=== PATIENT | female | born 1940 | race African-American/Black ===

== ENCOUNTER 2018-02-18 05:52 | Inpatient (IN) | payer OTHER ==
[2018-02-06 14:06] VITALS: BMI 33.6
[2018-02-18] MEDS ORDERED: ROPIVICAINE 0.2%/MORPH PF/KETOROLAC - 51ML DISP.SYRINGE IA ONE ×4 (06:22→12:02)
[2018-02-18] MEDS ORDERED: oxyCODONE HCL 10 MG SUSTAINED ACTING TABLET PO ONE (06:22)
[2018-02-18] MEDS ORDERED: CELECOXIB 200 MG CAPSULE PO ONE (06:22)
[2018-02-18] MEDS ORDERED: GABAPENTIN 300 MG CAPSULE (FP) PO ONE (06:22)
[2018-02-18] MEDS ORDERED: CEFAZOLIN 2 GM/D5W 2 GM/50 ML ML IVPB ONE (06:22)
[2018-02-18] MEDS ORDERED: TRANEXAMIC ACID 1000 MG/10 ML VIAL IVPUSH ONE (06:22)
[2018-02-18] MEDS ORDERED: PANTOPRAZOLE 40 MG TABLET (FP) PO ONE (06:23)
[2018-02-18] MEDS ORDERED: PANTOPRAZOLE 40 MG TABLET (FP) ONE (06:50)
[2018-02-18] MEDS ORDERED: GABAPENTIN 300 MG CAPSULE (FP) ONE (06:51)
[2018-02-18] MEDS ORDERED: CELECOXIB 200 MG CAPSULE ONE (06:51)
[2018-02-18] MEDS ORDERED: oxyCODONE HCL 10 MG SUSTAINED ACTING TABLET ONE (06:51)
--- NOTE | 2018-02-18 07:30 | HP ---
Admitting History and Physical - Admission Chief Complaint: right knee osteoarthritis x years History of Present Illness: 77 year old female presents regarding her right knee. Longstanding history of right knee osteoarthritis. Patient complains of pain, limited ROM, difficulty ambulating and difficulty with activities of daily living. Patient has failed conservative treatment measures including PO medication, activity modification, injections and exercise program. As patient has failed conservative treatment measures, she wishes to proceed with surgical intervention - right total knee arthroplasty, MAKOplasty. History Source: Patient - Past Medical History Cardiovascular: Yes: Hyperlipdemia Pulmonary: Yes: Asthma ...: No Psych: Yes: Depression - Past Surgical History Additional Past Surgical History: See written history & physical. - Advance Directives Advance Directives: Yes: Health Care Proxy - Smoking History Smoking history: Former smoker Have you smoked in the past 12 months: Yes Aproximately how many cigarettes per day: 40 If you are a former smoker, when did you quit?: 1984 - Alcohol/Substance Use Hx Alcohol Use: Yes (WINE SOCIAL) Home Medications - Allergies Allergies/Adverse Reactions: Allergies Allergy/AdvReac Type Severity Reaction Status Date / Time No Known Allergies Allergy Verified 02/18/18 06:41 - Home Medications Home Medications: Ambulatory Orders Albuterol Sulfate [Proair Hfa] 1 puff IH PRN PRN 02/06/18 Aspirin [Aspirin EC] 81 mg PO DAILY 02/06/18 Budesonide/Formeterol Fumarate [SYMBICORT 160/4.5mcg -] 2 inh PO PRN PRN Fluoxetine HCl [Prozac] 10 mg PO DAILY 02/06/18 Simvastatin 10 mg PO HS 02/06/18 Wellbutrin Xl 300 mg PO DAILY 02/06/18 Review of Systems - Review of Systems Musculoskeletal: reports: Crepitus (right knee), Decreased ROM (right knee), Joint Pain (right knee), Joint Swelling (right knee) Physical Examination Vital Signs: Vital Signs Temperature 98.5 F 02/18/18 06:43 Pulse Rate 70 02/18/18 06:43 Respiratory Rate 16 02/18/18 06:43 Blood Pressure 137/74 02/18/18 06:43 O2 Sat by Pulse Oximetry (%) 97 02/18/18 06:47 Constitutional: Yes: Well Nourished, No Distress Eyes: Yes: Conjunctiva Clear HENT: Yes: Atraumatic, Normocephalic Neck: Yes: Supple Cardiovascular: Yes: Regular Rate and Rhythm Respiratory: Yes: Regular Gastrointestinal: Yes: Soft ...Rectal Exam: Yes: Deferred Musculoskeletal: Yes: Joint Stiffness (right knee), Joint Swelling (right knee) Assessment/Plan 77 year old female presents regarding her right knee. Longstanding history of right knee osteoarthritis. Patient complains of pain, limited ROM, difficulty ambulating and difficulty with activities of daily living. Patient has failed conservative treatment measures including PO medication, activity modification, injections and exercise program. As patient has failed conservative treatment measures, she wishes to proceed with surgical intervention. Pros, cons, risks, benefits & alternatives of a right total knee arthroplasty, MAKOplasty was discussed with the patient at length. Patient confirms her understanding and consents to proceed with a right total knee arthroplasty - MAKOplasty.
[2018-02-18] MEDS ORDERED: SUCCINYLCHOLINE CHLORIDE 200 MG/10 ML VIAL ONE (08:02)
[2018-02-18] MEDS ORDERED: ePHEDrine SULFATE 50 MG/1 ML AMPULE ONE (08:02)
[2018-02-18] MEDS ORDERED: PROPOFOL 20 ML ONE ×5 (08:02→11:40)
[2018-02-18] MEDS ORDERED: VANCOMYCIN 1,000 MG VIAL (RESTRICTED TO ID ONLY) IVPB ONE ×3 (08:57→12:02)
[2018-02-18] MEDS ORDERED: TRANEXAMIC ACID 1000 MG/10 ML VIAL IVPB ONE ×3 (08:59→12:02)
[2018-02-18] MEDS: KETOROLAC TROMETHAMINE 30 MG/1 ML VIAL IVPUSH SCH ×2 (12:00→18:21)
[2018-02-18] MEDS: ACETAMINOPHEN 325 MG TABLET (FP) PO SCH ×3 (12:00→23:55)
[2018-02-18] MEDS: traMADol HCL 50 MG TABLET PO SCH ×3 (12:00→23:55)
--- NOTE | 2018-02-18 12:22 | OP ---
Operative Note - Note: Operative Date: 02/18/18 Pre-Operative Diagnosis: Right knee OA Operation: Right TKA Post-Operative Diagnosis: Same as Pre-op Surgeon: Iain Paez Nitroglycerin Separator Operator: Alley Lomas Anesthesia: Spinal Specimens Removed: bone Estimated Blood Loss (mls): 150
[2018-02-18] MEDS ORDERED: ACETAMINOPHEN INJECTION 100 ML IVPB ONE (12:23)
[2018-02-18] MEDS ORDERED: traMADol HCL 50 MG TABLET ONE (12:23)
[2018-02-18] MEDS ORDERED: KETOROLAC TROMETHAMINE 30 MG/1 ML VIAL ONE (12:23)
[2018-02-18] MEDS ORDERED: oxyCODONE HCL 5 MG TABLET PO PRN ×2 (12:25)
[2018-02-18] MEDS ORDERED: ONDANSETRON 4 MG/2 ML VIAL IVPUSH PRN ×2 (12:25→12:39)
[2018-02-18] MEDS ORDERED: PROMETHAZINE HCL 25 MG/1 ML VIAL IVPB PRN (12:25)
[2018-02-18] MEDS ORDERED: ALBUTEROL SO4 18 GM HFA INHALER IH PRN (12:37)
[2018-02-18] MEDS ORDERED: BUDESONIDE/FORMETEROL FUMARATE 160/4.5 mcg INHALER IH PRN (12:37)
[2018-02-18] MEDS ORDERED: MAGNESIUM HYDROX 2400MG/30ML ORAL SUSPENSION 30 ML CUP PO PRN (12:39)
[2018-02-18] MEDS ORDERED: MAG HYDROX/AL HYDROX/SIMETH 30 ML UNIT-DOSE CUP PO PRN (12:39)
[2018-02-18] MEDS ORDERED: LACTATED RINGERS SOLUTION 1,000 ML IV SCH (12:45)
[2018-02-18] MEDS ORDERED: ACETAMINOPHEN 1000 MG/100 ML VIAL (NON FORMULARY) IVPB ONE (12:45)
[2018-02-18] MEDS: CEFAZOLIN 2 GM/D5W 2 GM/50 ML ML IVPB SCH (17:31)
[2018-02-18] MEDS ORDERED: DEXAMETHASONE SOD PHOSPHATE 10 MG/1 ML VIAL IVPB ONE (20:00)
[2018-02-18] MEDS: SENNOSIDES/DOCUSATE COMBO (SENNA PLUS) TABLET (UD) PO SCH (21:18)
[2018-02-18] MEDS: ASPIRIN 325 MG TABLET PO SCH (21:18)
[2018-02-18] MEDS: ASCORBIC ACID 500 MG TABLET (FP) PO SCH (21:19)
[2018-02-18] MEDS: oxyCODONE HCL 10 MG SUSTAINED ACTING TABLET PO SCH (21:19)
[2018-02-18] MEDS: ATORVASTATIN CA 10 MG TABLET (FP) PO SCH (21:20)
[2018-02-18] MEDS: CELECOXIB 200 MG CAPSULE PO SCH (21:20)
[2018-02-18] MEDS: GABAPENTIN 300 MG CAPSULE (FP) PO SCH (21:20)
[2018-02-19] MEDS: KETOROLAC TROMETHAMINE 30 MG/1 ML VIAL IVPUSH SCH ×2 (00:56→06:15)
[2018-02-19] MEDS: CEFAZOLIN 2 GM/D5W 2 GM/50 ML ML IVPB SCH (02:06)
[2018-02-19] MEDS: traMADol HCL 50 MG TABLET PO SCH ×3 (06:14→19:59)
[2018-02-19] MEDS: ACETAMINOPHEN 325 MG TABLET (FP) PO SCH ×3 (06:15→17:45)
[2018-02-19 08:11] LABS: HEMATOCRIT 32.5 % (32.4-45.2); HEMOGLOBIN 10.6 GM/dl (10.7-15.3); MCH 29.2 pg (25.7-33.7); MCHC 32.6 g/dl (32.0-36.0); MEAN CELL VOLUME 89.5 fl (80-96); MEAN PLT VOLUME 7.4 fl (7.5-11.1); PLATELET COUNT 273 K/MM3 (134-434); RBC 3.63 M/mm3 (3.60-5.2); RDW 13.3 % (11.6-15.6); WHITE BLOOD COUNT 11.1 K/mm3 (4.0-10.8)
[2018-02-19 08:40] LABS: ANION GAP 8 (8-16); BLOOD UREA NITROGEN 18 mg/dl (7-18); CHLORIDE 103 mmol/L (98-107); CO2 23 mmol/L (22-28); CREATININE 1.1 mg/dl (0.6-1.3); GLUCOSE,RANDOM 121 mg/dl (74-106); POTASSIUM 4.2 mmol/L (3.5-5.1); SODIUM 134 mmol/L (136-145)
[2018-02-19] MEDS: CELECOXIB 200 MG CAPSULE PO SCH ×2 (10:34→21:13)
[2018-02-19] MEDS: ASPIRIN 325 MG TABLET PO SCH ×2 (10:34→21:13)
[2018-02-19] MEDS: PANTOPRAZOLE 40 MG TABLET (FP) PO SCH (10:35)
[2018-02-19] MEDS: GABAPENTIN 300 MG CAPSULE (FP) PO SCH ×2 (10:35→21:12)
[2018-02-19] MEDS: SENNOSIDES/DOCUSATE COMBO (SENNA PLUS) TABLET (UD) PO SCH ×2 (10:35→21:13)
[2018-02-19] MEDS: oxyCODONE HCL 10 MG SUSTAINED ACTING TABLET PO SCH ×2 (10:35→21:13)
[2018-02-19] MEDS: MULTIVITAMINS (DAILY MVI) TABLET (FP) PO SCH (10:36)
[2018-02-19] MEDS: ASCORBIC ACID 500 MG TABLET (FP) PO SCH ×2 (10:37→21:12)
[2018-02-19] MEDS ORDERED: PT OWN MED DRAWER 7, Y5N ONE (10:39)
[2018-02-19] MEDS: FLUoxetine HCL 10 MG CAPSULE (FP) PO SCH (10:40)
[2018-02-19] MEDS: ATORVASTATIN CA 10 MG TABLET (FP) PO SCH (21:13)
--- NOTE | 2018-02-19 23:00 | PN ---
Progress Note (short form) - Note Progress Note: Pt seen and examined. Doing well AVSS Selected Entries 02/19/18 21:36 Temperature 98.2 F Pulse Rate 72 Respiratory 18 Rate Blood Pressure 107/46 Laboratory Tests 02/19/18 02/19/18 07:35 07:35 WBC 11.1 H Hgb 10.6 L Hct 32.5 Plt Count 273 Sodium 134 L Potassium 4.2 Chloride 103 Carbon Dioxide 23 Anion Gap 8 BUN 18 Creatinine 1.1 Random Glucose 121 H Calcium 9.0 Gen: NAD RLE: c/d/i, NVID A/P s/p R TKA PT/OOB D/C in AM after PT
[2018-02-20] MEDS: ACETAMINOPHEN 325 MG TABLET (FP) PO SCH ×2 (00:04→06:32)
[2018-02-20] MEDS: traMADol HCL 50 MG TABLET PO SCH ×2 (00:05→06:33)
[2018-02-20 06:28] VITALS: BP 100/45; PULSE 67; TEMP 97.8
[2018-02-20 08:22] LABS: HEMATOCRIT 30.2 % (32.4-45.2); HEMOGLOBIN 9.8 GM/dl (10.7-15.3); MCH 29.1 pg (25.7-33.7); MCHC 32.5 g/dl (32.0-36.0); MEAN CELL VOLUME 89.8 fl (80-96); MEAN PLT VOLUME 7.7 fl (7.5-11.1); PLATELET COUNT 218 K/MM3 (134-434); RBC 3.37 M/mm3 (3.60-5.2); RDW 13.5 % (11.6-15.6); WHITE BLOOD COUNT 8.9 K/mm3 (4.0-10.8)
[2018-02-20] MEDS: ASCORBIC ACID 500 MG TABLET (FP) PO SCH (09:23)
[2018-02-20] MEDS: MULTIVITAMINS (DAILY MVI) TABLET (FP) PO SCH (09:23)
[2018-02-20] MEDS: ASPIRIN 325 MG TABLET PO SCH (09:23)
[2018-02-20] MEDS: CELECOXIB 200 MG CAPSULE PO SCH (09:24)
[2018-02-20] MEDS: PANTOPRAZOLE 40 MG TABLET (FP) PO SCH (09:24)
[2018-02-20] MEDS: GABAPENTIN 300 MG CAPSULE (FP) PO SCH (09:24)
[2018-02-20] MEDS: oxyCODONE HCL 10 MG SUSTAINED ACTING TABLET PO SCH (09:24)
[2018-02-20] MEDS: SENNOSIDES/DOCUSATE COMBO (SENNA PLUS) TABLET (UD) PO SCH (09:24)
[2018-02-20] MEDS ORDERED: PT OWN MED DRAWER 7, Y5N ONE (09:28)
[2018-02-20] MEDS: FLUoxetine HCL 10 MG CAPSULE (FP) PO SCH (09:29)
--- NOTE | 2018-02-20 16:50 | PATH ---
Surgical Pathology Report Patient Name: NEIL COE Med. Rec. #: [id number] /Age/Gender: 1940 (Age: 77) / F Account: [id number] Location: [facility] Taken: 02/18/2018 Received: 02/18/2018 Reported: 02/20/2018 Physicians: Iain Paez M.D. Specimen(s) Received RIGHT KNEE BONE Clinical History Right knee osteoarthritis Final Diagnosis BONE, KNEE, RIGHT, TOTAL KNEE REPLACEMENT MAKOPLASTY: BONE WITH DEGENERATIVE JOINT DISEASE, FIBROADIPOSE AND DENSE FIBROCONNECTIVE TISSUE. Electronically Signed Dipti Bae M.D. Gross Description Received in formalin labeled "right knee bones" is a 11 x 10 x 3 cm aggregate of multiple portions of bone and soft tissue. The tibial plateau measures 8 x 7 x 2 cm. There are focal areas of eburnation identified. The articular surface is beverly-yellow and diffusely granular. The underlying trabecular bone is yellow and hard. [employer] Operator sections submitted in one cassette, following decalcification. SEVERINO/02/18/2018 sky/02/18/2018
--- NOTE | 2018-02-21 12:43 | SPEC ---
DATE OF OPERATION: 02/18/2018 PREOPERATIVE DIAGNOSIS: Right knee osteoarthritis. POSTOPERATIVE DIAGNOSIS: Right knee osteoarthritis. PROCEDURE: Right total knee replacement with MAKOplasty robotic navigation. ATTENDING: Sharon Prince MD MANAGER ENGAGEMENT: SANTIAGO Waite ANESTHESIA: Spinal plus sedation. ESTIMATED BLOOD LOSS: 150 mL. COMPLICATIONS: None. SPECIMENS: Resected bone was sent for pathology analysis. DISPOSITION: The patient was transferred to the PACU in stable condition. IMPLANTS USED: [place] Triathlon size 5 femoral component, Triathlon size 4 tibial component, 13-mm total stabilized polyethylene component, 32-mm patellar component. INDICATIONS: This is a 77-year-old female who presented to the office complaining of severe right knee pain. She was seen and examined by Dr. Prince and diagnosed with severe right knee osteoarthritis. The patient was initially treated conservatively but failed nonoperative management. She continued to have severe pain and ambulatory dysfunction. She was therefore indicated for a right total knee replacement with MAKOplasty robotic navigation. The risks, benefits and alternatives to the surgery were explained to the patient in great detail and she elected to proceed with the surgery. On the day of surgery, the patient was taken to the operating room and placed on the OR table. Spinal anesthesia was administered by the anesthesiologist. The patient was then positioned supine on the table and all bony prominences were padded. The knee was then prepped and draped in the usual sterile fashion and intravenous antibiotics were given for infection prophylaxis. A surgical timeout was then performed with the team, and the patients identity, procedure, side, availability of implants, and the administration of antibiotics was confirmed. With the knee flexed, a midline incision was made and carried down through the subcutaneous fat to the underlying retinaculum. A medial parapatellar arthrotomy was performed. This was followed by a subperiosteal dissection of the tissue off the proximal, medial tibia. A portion of fat pad was removed from under the patellar tendon, and a small portion of fat was excised off the distal supracondylar femur. Electrocautery and an Med ePadamantys bipolar sealing device were used to achieve hemostasis. The knee was then flexed further and the anterior horn of the lateral meniscus was released from the midline. Next, the anterior and posterior cruciate ligaments were transected. Grade 4 changes were noted diffusely throughout the knee. Femoral and tibial checkpoints were then placed in the appropriate location using a mallet. Two parallel bicortical self-drilling pins were placed in the tibial diaphysis after making stab incisions and bluntly dissecting down to bone. Two pins were then placed in the distal supracondylar femur. The [employer] navigation arrays were then attached to both the femoral and tibial pins and the lower extremity was then registered to the robotic navigation device using various joint movements, as well as inputting several dozen reference points. The knee was then taken through a full range of motion with a corrective force applied. Alignment in varus/valgus as well as flexion/extension and soft tissue balance was measured in various positions. The navigation device showed a numerical and graphic representation of the soft tissue balance. The components were repositioned virtually using the software until optimal soft tissue balance was achieved on screen. Once this was accomplished, the final plan was saved and sent to the robot. Self-retaining retractors were then placed at the joint line for exposure and protection of the collateral ligaments. The robot was brought into the sterile field and registered with the navigation device. The robotic arm with attached oscillating saw blade was then used to perform femoral and tibial bone cuts as per the saved software plan. The femoral box cut was made using the appropriately sized manual cutting guide. The knee was then irrigated. Trial components were placed and the knee was taken through a full range of motion to assess soft tissue balance and alignment. The range of motion was found to be excellent and the soft tissue balance was optimal and according to plan. The knee was then put into extension and the patella everted. The synovium around the patella was circumscribed with electrocautery. A caliper was used to measure the patellar thickness and a saw was then used to resect the patella at the chondro-osseous junction. The cut surface was then sized and drilled for the appropriate patellar button, with care taken to medialize it. A trial patella was then placed and the knee was again taken through a full range of motion. The knee was found to have both good balance and good patellar tracking. All of the components were removed except the tibial base plate. The appropriate instrumentation was used to drill and punch the proximal tibia for the keel of the final component. All bony surfaces were then cleaned with pulsatile lavage and dried. Bone cement was then prepared on the back table, and final components were cemented in place in the usual fashion. Extruded cement was removed. The polyethylene trial was placed, the knee was put into extension, and axial pressure was applied for compression while the cement hardened. The patellar button was similarly cemented into place. Once the cement had hardened, the knee was taken through a full range of motion to assess stability, balance, and patellar tracking. This was found to be optimal and the trial polyethylene was exchanged for the appropriately sized real implant. The wound was then thoroughly irrigated with normal saline. A 3-minute dilute Betadine lavage was performed. The knee was again irrigated using a pulsatile lavage device. A periarticular injection was used to locally infiltrate the capsular tissues surrounding the implant and prosthesis. Then No. 1 Polysorb and 0 V-Loc 180 barbed sutures were used to close the arthrotomy. Then No. 1 Polysorb and 2-0 V-Loc 90 sutures were used in the subcutaneous tissues. Then 4-0 undyed Vicryl and Dermabond skin adhesive was used to close the stab incisions made for the navigation pins. The skin was closed using both 3-0 V-Loc 90 suture in a running subcuticular fashion and Dermabond skin adhesive. Once this was completed a sterile Aquacel dressing and compressive Daniel wrap was applied. The patient was then awakened and taken to the PACU in stable condition. SHARON PRINCE M.D. [id number]
== END 2018-02-20 14:30 | disposition home health service (06) | DRG 470 ==
LOC: FM/S 05:52
PROVIDERS: ADMIT Student in an Organized Health Care Education/Training Program; ATTEND Student in an Organized Health Care Education/Training Program
PROC: 8E0Y0CZ Robotic Assisted Procedure of Lower Extremity, Open Approach (ICD-10-PCS; 2018-02-18)
PROC: 0SRC0J9 Replacement of Right Knee Joint with Synthetic Substitute, Cemented, Open Approach (ICD-10-PCS; principal; 2018-02-18 08:43)
DX: M17.11 Unilateral primary osteoarthritis, right knee (principal); E78.5 Hyperlipidemia, unspecified; J45.909 Unspecified asthma, uncomplicated; F32.9 Major depressive disorder, single episode, unspecified; Z87.891 Personal history of nicotine dependence
CPT/HCPCS: 36415; 73560-TC-RT-FY; 80048; 85027; 88304-TC; 88311-TC; 94010; 94760; 97116-GP; 97162-GP; J0131; J1100

== ENCOUNTER 2018-02-25 13:04 | Emergency (ER) | payer OTHER ==
--- NOTE | 2018-02-25 13:33 | PDOC ---
History of Present Illness - General Chief Complaint: Shortness of Breath Stated Complaint: DIFFICULTY BREATHING Time Seen by Provider: 02/25/18 13:32 - History of Present Illness Initial Comments: 02/25/18 13:33 Ms. Olivas is a 77 yo female w/ pmh of HLD and asthma who presents from providers office as she had an episode of asthma exacerbation while waiting to see her orthopedist earlier today. She reports she now feels better after she received 1 episode of nebulizer and is breathing clearly now. Ms. Olivas was at her orthopedists office for evaluation of right knee warmth and swelling as she is 1 week out from a total right knee replacement. She is concerned as she has had RLE warmth and swelling for the last 2-3 days and is concerned something may be wrong post-op. The patient denies chest pain, shortness of breath, headache and dizziness. Denies fever, chills, nausea, vomit, diarrhea and constipation. Denies dysuria, frequency, urgency and hematuria. Allergies: NKDA Past History - Past Medical History Allergies/Adverse Reactions: Allergies Allergy/AdvReac Type Severity Reaction Status Date / Time No Known Allergies Allergy Verified 02/25/18 13:21 Home Medications: Ambulatory Orders Albuterol Sulfate [Proair Hfa] 1 puff IH PRN PRN 02/06/18 Budesonide/Formeterol Fumarate [SYMBICORT 160/4.5mcg -] 2 inh PO PRN PRN Fluoxetine HCl [Prozac] 10 mg PO DAILY 02/06/18 Simvastatin 10 mg PO HS 02/06/18 Celecoxib [CeleBREX -] 200 mg PO DAILY #30 capsule 02/19/18 Multivitamins [Multivit ([facility] Formul[facility])] 1 tab PO DAILY tab 02/19/18 Oxycodone HCl/Acetaminophen [Percocet 5-325 mg Tablet] 1 - 2 tab PO Q4H PRN #60 tablet MDD 10 02/19/18 Pantoprazole Sodium [Protonix -] 40 mg PO DAILY #40 tablet.ec 02/19/18 traMADol HCL [Ultram -] 50 mg PO Q4H PRN #42 tablet MDD 6 02/19/18 Ascorbic Acid [Vitamin C -] 500 mg PO DAILY 02/25/18 Aspirin [ASA -] 325 mg PO DAILY 02/25/18 Sulfamethoxazole/Trimethoprim [Bactrim Ds -] 1 tab PO BID #14 tablet 02/25/18 Anemia: No Asthma: Yes (USES INHALERS PRN) Cancer: No Cardiac Disorders: No CVA: No COPD: No CHF: No Dementia: No Diabetes: No GI Disorders: Yes (GERD) Disorders: No HTN: No Hypercholesterolemia: Yes Liver Disease: No Seizures: No Thyroid Disease: No - Surgical History Abdominal Surgery: No Appendectomy: No Cardiac Surgery: No Cholecystectomy: No Lung Surgery: No Neurologic Surgery: No Orthopedic Surgery: Yes (ARTHROSCOPY RIGHT KNEE TIMES 2 2015) - Suicide/Smoking/Psychosocial Hx Smoking History: Former smoker Have you smoked in the past 12 months: Yes Number of Cigarettes Smoked Daily: 40 If you are a former smoker, when did you quit?: 1984 Hx Alcohol Use: Yes (WINE SOCIAL) Drug/Substance Use Hx: No Substance Use Type: Alcohol Hx Substance Use Treatment: No Review of Systems - Review of Systems Comments:: 02/25/18 13:33 GENERAL/CONSTITUTIONAL: No fever or chills. No weakness. HEAD, EYES, EARS, NOSE AND THROAT: No change in vision. No ear pain or discharge. No sore throat. CARDIOVASCULAR: No chest pain or shortness of breath RESPIRATORY: No cough, wheezing, or hemoptysis. GASTROINTESTINAL: No nausea, vomiting, diarrhea or constipation. GENITOURINARY: No dysuria, frequency, or change in urination. MUSCULOSKELETAL: +RLE swelling. No neck or back pain. SKIN: No rash NEUROLOGIC: No headache, vertigo, loss of consciousness, or change in strength/ sensation. ENDOCRINE: No increased thirst. No abnormal weight change HEMATOLOGIC/LYMPHATIC: No anemia, easy bleeding, or history of blood clots. ALLERGIC/IMMUNOLOGIC: No hives or skin allergy. *Physical Exam - Physical Exam Comments: 02/25/18 13:33 GENERAL: Awake, alert, and fully oriented, in no acute distress HEAD: No signs of trauma, normocephalic, atraumatic EYES: PERRLA, EOMI, sclera anicteric, conjunctiva clear ENT: Auricles normal inspection, hearing grossly normal, nares patent, oropharynx clear without exudates. Moist mucosa NECK: Normal ROM, supple, no lymphadenopathy, JVD, or masses LUNGS: No distress, speaks full sentences, clear to auscultation bilaterally HEART: Regular rate and rhythm, normal S1 and S2, no murmurs, rubs or gallops, peripheral pulses normal and equal bilaterally. ABDOMEN: Soft, nontender, normoactive bowel sounds. No guarding, no rebound. No masses EXTREMITIES: +RLE warm, swollen, and tight appearing. 3cm blood bullae noted at site. Mild redness noted around 3cm incision. Otherwise normal inspection, Normal range of motion, no edema. No clubbing or cyanosis. NEUROLOGICAL: Cranial nerves II through XII grossly intact. Normal speech, normal gait, no focal sensorimotor deficits SKIN: Warm, Dry, normal turgor, no rashes or lesions noted. ED Treatment Course - LABORATORY CBC & Chemistry Diagram: 02/25/18 14:13 02/25/18 17:00 Medical Decision Making - Medical Decision Making 02/25/18 17:04 Ms. Olivas is a 77 yo female w/ pmh as described who presents for evaluation after asthma exacerbation earlier today complicated by recent surgery with cellulitis noted at surgery site. Labs as below. Cellulitic process discussed with orthopedic surgeon who would like one week of bactrim BID (DS) and f/u tomorrow. Will discharge patient to home w/ said treatment. Patient verbalized she will follow-up with ortho tomorrow. Laboratory Results - last 24 hr 02/25/18 02/25/18 14:13 17:00 WBC 9.6 RBC 3.55 L Hgb 10.4 L Hct 31.6 L MCV 88.9 MCH 29.3 MCHC 32.9 RDW 14.2 Plt Count 331 MPV 7.7 Absolute Neuts (auto) 8.7 Neutrophils % 90.5 H Lymphocytes % 5.2 L Monocytes % 3.6 L Eosinophils % 0.4 Basophils % 0.3 Nucleated RBC % 0 Sodium 137 Potassium 4.3 Chloride 104 Carbon Dioxide 25 Anion Gap 8 BUN 20 H Creatinine 0.9 Creat Clearance w eGFR > 60 Random Glucose 128 H Calcium 8.6 Total Bilirubin 0.4 AST 29 ALT 35 Alkaline Phosphatase 67 Total Protein 6.7 Albumin 3.0 L 02/25/18 18:54 *DC/Admit/Observation/Transfer Diagnosis at time of Disposition: Cellulitis Qualifiers: Site of cellulitis: unspecified site Qualified Code(s): L03.90 - Cellulitis, unspecified - Discharge Dispostion Disposition: HOME - Prescriptions Prescriptions: Sulfamethoxazole/Trimethoprim [Bactrim Ds -] 1 tab PO BID #14 tablet - Referrals Referrals: Alton Mathis [Primary Care Provider] - - Patient Instructions Printed Discharge Instructions: DI for Cellulitis -- Adult Additional Instructions: Please follow-up with Dr. Iain Paez tomorrow in clinic at [address] ( next door to [facility]) at noon. Take all medications as proscribed. Return to ER if any increase in pain, fever, chills, or other concerning symptoms. - Post Discharge Activity
[2018-02-25 13:40] VITALS: TEMP 98.3; BMI 33.6
--- NOTE | 2018-02-25 14:09 | PDOC ---
Attending Attestation - HPI HPI: 02/25/18 16:30 The patient is a 77 year old female with a significant PMH of hyperlipidemia and asthma who presents to the emergency department with with an episode of asthma exacerbation earlier today. The patient reports that she was at her orthopedic office earlier today waiting to be seen when she had her asthma exacerbation. The patient reports that she is feeling better after receiving a nebulizer treatment. The patient reports that she is one week out of a total right knee replacement. She states that she was concerned because she was experiencing right lower extremity warmth and swelling for 3 days. The patient denies any other symptoms. She denies any fever, chills, nausea, vomit, diarrhea, constipation or urinary symptoms. She denies any headache and dizziness. The patient denies any other complaints. PCP: Dr. Mathis - Physicial Exam PE: 02/25/18 16:30 Vitals: Triage vital signs reviewed General Appearance: No acute distress, well nourished, well developed Head: Atraumatic Neck: Supple; No nuchal rigidity Chest Wall: Nontender Cardiac: Regular rate and rhythm, no murmurs, no rubs, no gallops Lungs: Clear to auscultation bilateral, good air movement bilaterally Abdomen: Soft, nondistended, normal bowel sounds, nontender to palpation Genitourinary: Rectal: Exam deferred Extremities:(+)midline surgical incision on right leg. 3am nicolas of blood. Full range of motion to all extremities, no cyanosis, clubbing. Skin: Warm and dry, no rashes or lesions, no rash, no petechiae Neuro: AOX3; Cranial Nerves 2-12 grossly intact, Strength intact to all extremities, Sensation intact to all extremities, gait normal Psych: Normal mood, normal affect Documentation prepared by Christina Michael, acting as medical equipment repair technician for Dustin Ellis MD. - Medical Decision Making 02/25/18 16:30 The patient is a 77 year old female with a significant PMH of hyperlipidemia and asthma who presents to the emergency department with with an episode of asthma exacerbation earlier today. The patient will get an EKG, labs, and CT. <Christina Michael - Last Filed: 02/25/18 16:39> - Resident Resident Name: Israel Anaya - ED Attending Attestation I have performed the following: I have examined & evaluated the patient, The case was reviewed & discussed with the resident, I agree w/resident's findings & plan, Exceptions are as noted - Medical Decision Making Patient sent to ED for evaluation of asthma exacerbation which appears has resolved as well as redness and swelling to right lower extremity which is 7 days status post right knee replacement. Incision intact no purulent drainage there is a blood blister approximately 3 cm and there is surrounding cellulitis around the incision site. There is no pain with range of motion. Our suspicion for septic joint is low at this time. Reevaluation 5 PM case discussed with patient's orthopedic surgeon reviewed findings. Patient stable for outpatient follow-up. Patient is ready on Keflex. We will add Bactrim twice a day for 7 days. We have arranged for a follow-up appointment with the orthopedic surgeon for tomorrow at noon at [address] Patient is in agreement with plan she feels well and is asking to go home Findings, need for follow-up, strict return instructions discussed with patient. <Dustin Ellis - Last Filed: 02/25/18 17:05>
[2018-02-25] MEDS ORDERED: SODIUM CHLORIDE 1,000 ML IV STA (14:13)
[2018-02-25 15:26] LABS: BASO % 0.3 % (0-2.0); EOS % 0.4 % (0-4.5); HEMATOCRIT 31.6 % (32.4-45.2); HEMOGLOBIN 10.4 GM/dL (10.7-15.3); LYMPH % 5.2 % (8-40); MCH 29.3 pg (25.7-33.7); MCHC 32.9 g/dl (32.0-36.0); MEAN CELL VOLUME 88.9 fl (80-96); MEAN PLT VOLUME 7.7 fl (7.5-11.1); MONO % 3.6 % (3.8-10.2); NEUT % 90.5 % (42.8-82.8); PLATELET COUNT 331 K/MM3 (134-434); RBC 3.55 M/mm3 (3.60-5.2); RDW 14.2 % (11.6-15.6); WHITE BLOOD COUNT 9.6 K/mm3 (4.0-10.0)
[2018-02-25] MEDS ORDERED: SULFAMETHOXAZOLE/TRIMETHOPRIM 800MG/160MG D.S. TABLET PO ONE (17:04)
[2018-02-25] MEDS ORDERED: SULFAMETHOXAZOLE/TRIMETHOPRIM 800MG/160MG D.S. TABLET ONE (17:10)
[2018-02-25 17:51] VITALS: BP 111/58; PULSE 82
[2018-02-25 17:56] LABS: ALK PHOS 67 U/L (45-117); ANION GAP 8 (8-16); BILIRUBIN,TOTAL 0.4 mg/dL (0.2-1.0); BLOOD UREA NITROGEN 20 mg/dL (7-18); CALCIUM 8.6 mg/dL (8.5-10.1); CHLORIDE 104 mmol/L (98-107); CO2 25 mmol/L (21-32); CREATININE 0.9 mg/dL (0.55-1.02); GLUCOSE,RANDOM 128 mg/dL (74-106); POTASSIUM 4.3 mmol/L (3.5-5.1); SGOT/AST 29 U/L (15-37); SGPT/ALT 35 U/L (12-78); SODIUM 137 mmol/L (136-145); TOT PROT 6.7 g/dl (6.4-8.2)
--- NOTE | 2018-02-26 15:15 | EKG ---
Test Reason : Blood Pressure : / mmHG Vent. Rate : 076 BPM Atrial Rate : 076 BPM P-R Int : 148 ms QRS Dur : 072 ms QT Int : 386 ms P-R-T Axes : 030 014 029 degrees QTc Int : 434 ms NORMAL SINUS RHYTHM normal st segments Confirmed by MD Hampton Edward ([id number]) on 02/26/2018 3:15:13 PM Referred By: Confirmed By:Francois Hampton MD
== END 2018-02-25 19:06 | disposition home or self-care (01) ==
LOC: JER 13:04
PROC: 3E0337Z Introduction of Electrolytic and Water Balance Substance into Peripheral Vein, Percutaneous Approach (ICD-10-PCS; principal; 2018-02-25)
DX: L03.115 Cellulitis of right lower limb (principal); J45.901 Unspecified asthma with (acute) exacerbation
CPT/HCPCS: 36415; 71045-TC-FY; 80053; 85025; 87040; 93005; 93010; 93971-TC; 96360; 99283-25; J7030

== ENCOUNTER 2018-08-22 05:56 | Inpatient (IN) | payer OTHER ==
[2018-08-19 09:15] VITALS: BMI 32.8
[~2018-08-22 05:56] MED LIST: CEFAZOLIN 2 GM/D5W 2 GM/50 ML ML IVPB ONE; CELECOXIB 200 MG CAPSULE PO ONE; GABAPENTIN 300 MG CAPSULE (FP) PO ONE; ROPIVICAINE 0.2%/MORPH PF/KETOROLAC - 51ML DISP.SYRINGE IA ONE; TRANEXAMIC ACID 1000 MG/10 ML VIAL IVPUSH ONE; oxyCODONE HCL 10 MG SUSTAINED ACTING TABLET PO ONE
[2018-08-22] MEDS: PANTOPRAZOLE 40 MG TABLET (FP) PO ONE (06:55)
[2018-08-22] MEDS ORDERED: VANCOMYCIN 1,000 MG VIAL (RESTRICTED TO ID ONLY) ONE (07:19)
[2018-08-22] MEDS ORDERED: ceFAZolin SODIUM 1 GM VIAL ONE ×2 (07:19→08:53)
[2018-08-22] MEDS ORDERED: BUPIVACAINE LIPOSOME/PF (EXPAREL) 266 MG/20 ML VIAL ONE (07:32)
[2018-08-22] MEDS ORDERED: SODIUM CHLORIDE 0.9% P/F 10 ML VIAL IJ ONE (07:33)
[2018-08-22] MEDS ORDERED: MIDAZOLAM HCL 2 MG/2 ML SINGLE DOSE VIAL ONE ×5 (07:41→11:20)
--- NOTE | 2018-08-22 07:47 | HP ---
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 She is status post a right total knee arthroplasty (MAKOplasty) with resultant loosening of the femoral component secondary to a stress fracture. Patient admits to pain, difficulty ambulating, limited ROM and difficulty with ADLs. Patient has failed conservative treatment measures including PO medications, activity modification , bracing and exercise program. At this point, patient would like to proceed with revision right total knee arthroplasty. History Source: Patient - Past Medical History Cardiovascular: Yes: Hyperlipdemia Pulmonary: Yes: Asthma Psych: Yes: Depression - Past Surgical History Additional Past Surgical History: See written history & physical. - Advance Directives Advance Directives: Yes: Health Care Proxy - Smoking History Smoking history: Former smoker Have you smoked in the past 12 months: Yes Aproximately how many cigarettes per day: 40 If you are a former smoker, when did you quit?: 1984 - Alcohol/Substance Use Hx Alcohol Use: Yes (WINE [employer]IAL) Home Medications - Allergies Allergies/Adverse Reactions: Allergies Allergy/AdvReac Type Severity Reaction Status Date / Time No Known Allergies Allergy Verified 02/25/18 13:21 - Home Medications Home Medications: Ambulatory Orders Simvastatin 10 mg PO HS 02/06/18 Budesonide/Formeterol Fumarate [SYMBICORT 160/4.5mcg -] 1 inh PO DAILY PRN 08/19 Bupropion HCl [Wellbutrin Xl] 300 mg PO DAILY 08/19/18 Review of Systems - Review of Systems Musculoskeletal: reports: Decreased ROM (right knee), Joint Pain (right knee), Joint Swelling (right knee) Physical Examination Vital Signs: Vital Signs Temperature 98.4 F 08/22/18 06:34 Pulse Rate 72 08/22/18 06:34 Respiratory Rate 18 08/22/18 06:34 Blood Pressure 130/65 08/22/18 06:34 O2 Sat by Pulse Oximetry (%) Constitutional: Yes: Well Nourished Eyes: Yes: Conjunctiva Clear HENT: Yes: Atraumatic, Normocephalic Neck: Yes: Supple Cardiovascular: Yes: Regular Rate and Rhythm Respiratory: Yes: Regular Gastrointestinal: Yes: Soft ...Rectal Exam: Yes: Deferred Musculoskeletal: Yes: Joint Stiffness (right knee), Joint Swelling (right knee) Assessment/Plan 77 year old female presents today regarding her right knee. She is status post a right total knee arthroplasty (MAKOplasty) with resultant loosening of the femoral component secondary to a stress fracture. Patient admits to pain, difficulty ambulating, limited ROM and difficulty with ADLs. Patient has failed conservative treatment measures including PO medications, activity modification , bracing and exercise program. At this point, patient would like to proceed with revision right total knee arthroplasty. Pros, cons, risks, benefits and alternatives of a revision right total knee arthroplasty was discussed with the patient at length. Patient confirms her understanding and consents to proceed with a revision right total knee arthroplasty.
[2018-08-22] MEDS ORDERED: VANCOMYCIN 1,000 MG VIAL (RESTRICTED TO ID ONLY) IVPB ONE (10:09)
[2018-08-22] MEDS ORDERED: TRANEXAMIC ACID 1000 MG/10 ML VIAL IVPB ONE (10:10)
[2018-08-22] MEDS ORDERED: ROPIVICAINE 0.2%/MORPH PF/KETOROLAC - 51ML DISP.SYRINGE IA ONE (10:11)
[2018-08-22] MEDS ORDERED: ONDANSETRON 4 MG/2 ML VIAL IVPUSH PRN ×3 (12:23→12:35)
[2018-08-22] MEDS ORDERED: ACETAMINOPHEN 325 MG TABLET (FP) PO PRN ×2 (12:26→18:00)
[2018-08-22] MEDS ORDERED: oxyCODONE HCL 5 MG TABLET PO PRN (12:27)
[2018-08-22] MEDS ORDERED: BUDESONIDE/FORMETEROL FUMARATE 160/4.5 mcg INHALER IH PRN (12:28)
--- NOTE | 2018-08-22 12:28 | OP ---
Operative Note - Note: Operative Date: 08/22/18 Pre-Operative Diagnosis: right TKA distal femur fracture, malunion, varus collapse of femoral component and malalignment Operation: Revision of right TKA femoral component Post-Operative Diagnosis: Same as Pre-op Surgeon: Iain Paez Manager Sports: Alley Lomas Anesthesia: Spinal Estimated Blood Loss (mls): 150
[2018-08-22] MEDS ORDERED: ACETAMINOPHEN 1000 MG/100 ML VIAL (NON FORMULARY) IVPB ONE (12:31)
[2018-08-22] MEDS ORDERED: MAGNESIUM HYDROX 2400MG/30ML ORAL SUSPENSION 30 ML CUP PO PRN (12:35)
[2018-08-22] MEDS ORDERED: MAG HYDROX/AL HYDROX/SIMETH 30 ML UNIT-DOSE CUP PO PRN (12:35)
[2018-08-22] MEDS ORDERED: LACTATED RINGERS SOLUTION 1,000 ML IV SCH (12:45)
[2018-08-22] MEDS: KETOROLAC TROMETHAMINE 30 MG/1 ML VIAL IVPUSH SCH ×2 (13:08→18:52)
[2018-08-22] MEDS ORDERED: KETOROLAC TROMETHAMINE 30 MG/1 ML VIAL ONE (13:13)
[2018-08-22] MEDS ORDERED: traMADol HCL 50 MG TABLET ONE (13:13)
[2018-08-22] MEDS ORDERED: ACETAMINOPHEN INJECTION 100 ML IVPB ONE (13:13)
--- NOTE | 2018-08-22 15:21 | OP ---
DATE OF OPERATION: 08/22/2018 PREOPERATIVE DIAGNOSIS: Right knee periprosthetic fracture, malunion, painful total knee replacement. POSTOPERATIVE DIAGNOSIS: Right knee periprosthetic fracture, malunion, painful total knee replacement. PROCEDURE: Revision of right total knee replacement, femoral component and polyethylene exchange. ATTENDING: Sharon Prince MD COMMUNITY HEALTH NAVIGATOR: SANTIAGO Waite. ANESTHESIA: Spinal plus sedation. ESTIMATED BLOOD LOSS: 150 mL. COMPLICATIONS: None. DISPOSITION: The patient was transferred to the PACU in stable condition. IMPLANTS USED: Mitzi Triathlon TS size 5 femoral component with a 19 mm x 100 mm intramedullary stem, 5 mm medial and lateral posterior augments, 5 mm distal lateral augment, 15 mm distal medial augment. INDICATIONS: This is a 77-year-old female who underwent a right total knee replacement on February 18, 2018, which was uneventful and the patient did well postoperatively and was discharged home. Approximately 11 days postoperatively, she had increased pain and swelling in the right knee, which persisted for many weeks. Imaging studies initially were normal, but later revealed callus formation from a supracondylar distal femur stress fracture. We continued to follow this in the office with serial x-rays and found that the femoral component of the knee replacement was collapsing into varus and eventually it was in nearly 20 degrees of varus after the fracture had healed as a malunion. The patient no longer had pain or swelling, but was having difficulty walking because of the malalignment of her leg. Treatment options were discussed with the patient, and she elected to proceed with revision of the femoral component to restore a neutral mechanical axis. The risks, benefits, and alternatives to the procedure were explained to the patient in great detail, and she elected to procced with surgery. DESCRIPTION OF PROCEDURE: On the day of surgery, the patient was taken to the operating room and placed on the OR table. Spinal anesthesia was administered by the anesthesiologist. The patient was then positioned supine on the table, and all bony prominences were padded. A tourniquet was placed on the proximal thigh. The right lower extremity was then prepped and draped in the usual sterile fashion, and intravenous antibiotics were given for infection prophylaxis. A surgical time-out was then performed with the team, and the patients identity, procedure, side, availability of implants, and the administration of antibiotics were confirmed. With the knee flexed, a midline incision was made and carried down through the subcutaneous fat to the underlying retinaculum. This incision incorporated the previous knee replacement incision scar. A medial parapatellar arthrotomy was performed. This was followed by a subperiosteal dissection of the tissue off the proximal medial tibia. A portion of fat pad and scar tissue was removed from under the patellar tendon, which was found to be fibrotic and thickened. A small portion of fat and scar tissue was also excised off the distal supracondylar femur, as well. Following this, we examined the distal femur and found that there was evidence of a healed fracture and significant new bone formation just proximal to the medial epicondyle. The fractures had fully healed, and the distal femur was mechanically and structurally intact. Additional arthrolysis was performed as scar tissue was removed using electrocautery and sharp dissection to reestablish the medial and lateral gutters. The knee was then flexed further and the polyethylene insert was removed to create space to work and to provide greater visualization of the components. Hohmann retractors were then placed around the distal femur. A microsagittal saw and flexible and rigid osteotomes were used to separate the femoral component from the underlying bone taking care to preserve as much bone stock as possible. Once this was completed, femoral bone was assessed and was found to be intact with good structural rigidity. There was a varus deformity of the distal cut surface from the fracture and malunion. Intramedullary starting drill was then used to drill a hole in the distal femur to access intramedullary canal, and incrementally larger reamers were used to ream the canal until endosteal chatter was felt. Once this was completed, the reamer was left in place as an alignment guide, and the distal cutting guide was attached to this and used to create a clean-up cut of the distal femur. Once this was completed, a 4-in-1 cutting guide was then attached and used to recut the distal femur to establish neutral mechanical alignment. Once this was completed, a 4-in-1 cutting block was attached and additional bone cuts were made to prepare the distal femur for implantation of a new prosthetic. Once this was completed, a trial prosthesis was assembled and placed on the distal femur. It was found to have excellent press-fit in the intramedullary canal and also good bone contact with the cut surfaces of the distal femur. A trial polyethylene was placed, and the knee was taken through a full range of motion. Soft tissue balance was assessed in both flexion and extension and found to be appropriate. The knee was stable throughout the full range of motion and was also found to have good patellar tracking. All of the trial components were then removed. All bony surfaces were then cleaned with pulsatile lavage and dried. Bone cement was then prepared on the back table, and the final components were assembled and cemented in place in the usual fashion. Extruded cement was removed. The polyethylene trial was then placed, the knee was put into extension, and axial pressure was applied for compression while the cement hardened. Once the cement had hardened, the knee was taken through a full range of motion again to assess stability, balance, and patellar tracking, and these were found to be optimal. The trial polyethylene was then exchanged for a real final implant. Once the final implants were placed, the wound was thoroughly irrigated with normal saline. No. 1 Vicryl and No. 0 V-Loc 180 barbed sutures were used to close the arthrotomy. Then, 2-0 V-Loc 90 sutures were used in the subcutaneous tissues. The skin was closed using both 3-0 V-Loc 90 suture in a running subcuticular fashion and Dermabond skin adhesive. Once this was completed, a sterile Aquacel dressing was applied. The patient was then awakened and taken to the PACU in stable condition. SHARON PRINCE M.D. [id number]
[2018-08-22] MEDS: traMADol HCL 50 MG TABLET PO SCH (18:51)
[2018-08-22] MEDS ORDERED: DEXAMETHASONE SOD PHOSPHATE 10 MG/1 ML VIAL IVPB ONE (20:00)
[2018-08-22] MEDS: ATORVASTATIN CA 10 MG TABLET (FP) PO SCH (21:13)
[2018-08-22] MEDS: CELECOXIB 200 MG CAPSULE PO SCH (21:13)
[2018-08-22] MEDS: GABAPENTIN 300 MG CAPSULE (FP) PO SCH (21:14)
[2018-08-22] MEDS: SENNOSIDES/DOCUSATE COMBO (SENNA PLUS) TABLET (UD) PO SCH (21:14)
[2018-08-22] MEDS: ASCORBIC ACID 500 MG TABLET (FP) PO SCH (21:15)
[2018-08-22] MEDS: oxyCODONE HCL 10 MG SUSTAINED ACTING TABLET PO SCH (21:15)
[2018-08-22] MEDS: CEFAZOLIN 2 GM/D5W 2 GM/50 ML ML IVPB SCH (21:18)
[2018-08-23] MEDS: KETOROLAC TROMETHAMINE 30 MG/1 ML VIAL IVPUSH SCH ×2 (00:19→06:03)
[2018-08-23] MEDS: traMADol HCL 50 MG TABLET PO SCH ×4 (00:20→21:48)
[2018-08-23] MEDS: CEFAZOLIN 2 GM/D5W 2 GM/50 ML ML IVPB SCH ×2 (01:02→10:00)
[2018-08-23 08:27] LABS: HEMATOCRIT 32.6 % (32.4-45.2); HEMOGLOBIN 10.5 GM/dl (10.7-15.3); MCH 28.8 pg (25.7-33.7); MCHC 32.2 g/dl (32.0-36.0); MEAN CELL VOLUME 89.4 fl (80-96); PLATELET COUNT 294 K/MM3 (134-434); RBC 3.65 M/mm3 (3.60-5.2); RDW 14.4 % (11.6-15.6); WHITE BLOOD COUNT 6.5 K/mm3 (4.0-10.8)
[2018-08-23 08:30] LABS: ANION GAP 7 MMOL/L (8-16); BLOOD UREA NITROGEN 16 mg/dl (7-18); CALCIUM 8.8 mg/dl (8.4-10.2); CHLORIDE 104 mmol/L (98-107); CO2 25 mmol/L (22-28); CREATININE 0.8 mg/dl (0.6-1.3); GLUCOSE,RANDOM 135 mg/dl (74-106); POTASSIUM 4.4 mmol/L (3.5-5.1); SODIUM 136 mmol/L (136-145)
[2018-08-23] MEDS ORDERED: PT OWN MED DRAWER 7, Y5N ONE (09:23)
[2018-08-23] MEDS: MULTIVITAMINS (DAILY MVI) TABLET (FP) PO SCH (09:28)
[2018-08-23] MEDS: GABAPENTIN 300 MG CAPSULE (FP) PO SCH ×2 (09:29→21:47)
[2018-08-23] MEDS: SENNOSIDES/DOCUSATE COMBO (SENNA PLUS) TABLET (UD) PO SCH ×2 (09:29→21:48)
[2018-08-23] MEDS: PANTOPRAZOLE 40 MG TABLET (FP) PO SCH (09:30)
[2018-08-23] MEDS: ASPIRIN 325 MG TABLET PO SCH (09:30)
[2018-08-23] MEDS: ASCORBIC ACID 500 MG TABLET (FP) PO SCH ×2 (09:30→21:48)
[2018-08-23] MEDS: oxyCODONE HCL 10 MG SUSTAINED ACTING TABLET PO SCH ×2 (09:30→21:47)
[2018-08-23] MEDS: CELECOXIB 200 MG CAPSULE PO SCH ×2 (09:31→21:48)
--- NOTE | 2018-08-23 10:29 | PN ---
Progress Note (short form) - Note Progress Note: Anesthesiology post op note: Patient seen at bedside, sp revision femoral component of knee replacement, post op day one. Patient received peripheral nerve blocks for post op pain control, and spinal anesthesia for the surgery. Patient is doing well this AM, pain minimal, no nausea or vomiting, no adverse reaction to anesthetic, Dept of anesthesia will sign off care at this point.
[2018-08-23] MEDS: ATORVASTATIN CA 10 MG TABLET (FP) PO SCH (21:47)
[2018-08-24] MEDS: traMADol HCL 50 MG TABLET PO SCH ×3 (00:30→12:45)
[2018-08-24] MEDS: ASPIRIN 325 MG TABLET PO SCH (08:58)
[2018-08-24] MEDS: SENNOSIDES/DOCUSATE COMBO (SENNA PLUS) TABLET (UD) PO SCH (08:59)
[2018-08-24] MEDS: oxyCODONE HCL 10 MG SUSTAINED ACTING TABLET PO SCH (08:59)
[2018-08-24] MEDS: PANTOPRAZOLE 40 MG TABLET (FP) PO ONE (09:00)
[2018-08-24] MEDS: ASCORBIC ACID 500 MG TABLET (FP) PO SCH (09:01)
[2018-08-24] MEDS: PANTOPRAZOLE 40 MG TABLET (FP) PO SCH (09:01)
[2018-08-24] MEDS: oxyCODONE HCL 5 MG TABLET PO PRN ×3 (09:02→16:20)
[2018-08-24 09:12] LABS: ANION GAP 7 MMOL/L (8-16); BLOOD UREA NITROGEN 15 mg/dl (7-18); CALCIUM 8.7 mg/dl (8.4-10.2); CHLORIDE 103 mmol/L (98-107); CO2 28 mmol/L (22-28); CREATININE 0.9 mg/dl (0.6-1.3); GLUCOSE,RANDOM 95 mg/dl (74-106); POTASSIUM 4.3 mmol/L (3.5-5.1); SODIUM 138 mmol/L (136-145)
[2018-08-24 09:13] LABS: HEMATOCRIT 30.4 % (32.4-45.2); HEMOGLOBIN 9.7 GM/dl (10.7-15.3); MCH 28.6 pg (25.7-33.7); MEAN CELL VOLUME 89.3 fl (80-96); MEAN PLT VOLUME 8.1 fl (7.5-11.1); PLATELET COUNT 291 K/MM3 (134-434); RDW 14.8 % (11.6-15.6); WHITE BLOOD COUNT 8.1 K/mm3 (4.0-10.8)
[2018-08-24] MEDS: CELECOXIB 200 MG CAPSULE PO SCH (10:27)
[2018-08-24] MEDS: MULTIVITAMINS (DAILY MVI) TABLET (FP) PO SCH (10:27)
[2018-08-24] MEDS: GABAPENTIN 300 MG CAPSULE (FP) PO SCH (10:27)
[2018-08-24 14:10] VITALS: BP 104/46; PULSE 70; TEMP 97.5
--- NOTE | 2018-08-24 15:43 | DS ---
Physical Examination Vital Signs: Vital Signs Temperature 97.5 F L 08/24/18 14:09 Pulse Rate 70 08/24/18 14:09 Respiratory Rate 16 08/24/18 14:09 Blood Pressure 104/46 L 08/24/18 14:09 O2 Sat by Pulse Oximetry (%) 99 08/24/18 14:09 Labs: CBC, BMP 08/24/18 07:28 08/24/18 07:28 Discharge Summary Reason For Visit: Right knee periprosthetic fracture Current Active Problems Periprosthetic fracture around internal prosthetic right knee joint (Acute) Procedures: Principal: Revision of right knee replacement femoral and polyethylene components Hospital Course: Admitted for elective surgery. Procedure performed without complications. Pt received postoperative antibiotic prophylaxis and DVT ppx. Ambulated with physical therapy. Stable for discharge home with outpatient followup. Condition: Stable - Instructions Diet, Activity, Other Instructions: Dr. Paez - Knee Replacement Instructions Keep the Aquacel dressing on until removed by Dr. Paez in 10-14 days - it is antibacterial and waterproof and you can shower with it on. Call the office for a follow-up appointment with Dr. Paez in 10-14 days. [phone] Take one Aspirin 325mg daily for 6 weeks to prevent blood clots in your legs. Take one Pantoprazole 40mg daily for 6 weeks to protect against heartburn and ulcers. Take Cephalexin (antibiotic) 3x/day for 10 days to help prevent skin infection. Take Celebrex 200mg once daily for 30 days to reduce swelling and inflammation. Take a multivitamin, stool softener, and extra Vitamin C supplement daily. For pain: *Mild pain (1-3/10): Take 1 Tramadol tablet every 4 hours as needed. Moderate pain (4-6/10): Take 1 Tramadol tablet and 1 Percocet tablet every 4 hours as needed. Severe pain (7-10/10): Take 1 Tramadol tablet and 2 Percocet tablets every 4 hours as needed. Activity: You can put as much weight on the operative leg as you want. Right after you get home, there will be a physical therapist coming to your house to help you walk around and bend/straighten your knee. After your follow-up appointment, you will be sent for more intensive outpatient physical therapy which will include machines and equipment that the home therapist cannot bring to your house. Always use a walker or cane for balance and to prevent falls. Expect to see swelling/bruising from the operative site all the way down to your toes. Wear the compression stocking on the operative side during the day to minimize how much swelling there is in your foot/ankle. Don't wear the stocking at night. You don't have to wear a stocking on the other side. Disposition: VNS/HOME HEALTH CARE - Home Medications Comprehensive Discharge Medication List: Ambulatory Orders Simvastatin 10 mg PO HS 02/06/18 Budesonide/Formeterol Fumarate [SYMBICORT 160/4.5mcg -] 1 inh PO DAILY PRN 08/19 Bupropion HCl [Wellbutrin Xl] 300 mg PO DAILY 08/19/18 Ascorbic Acid [Vitamin C -] 500 mg PO BID tablet 08/24/18 Aspirin [ASA -] 325 mg PO DAILY@0800 tablet 08/24/18 Celecoxib [CeleBREX -] 200 mg PO DAILY #30 capsule 08/24/18 Cephalexin Monohydrate [Keflex -] 500 mg PO TID #30 capsule 08/24/18 Multivitamins [Multivit ([facility] Formulary)] 1 tab PO DAILY tab 08/24/18 Oxycodone HCl/Acetaminophen [Percocet 5-325 mg Tablet] 1 - 2 tab PO Q4H PRN #60 tablet MDD 10 08/24/18 Pantoprazole Sodium [Protonix -] 40 mg PO DAILY #40 tablet.ec 08/24/18 Sennosides/Docusate Sodium [Pericolace -] 2 tablet PO BID tablet 08/24/18 traMADol HCL [Ultram -] 50 mg PO Q4H PRN #60 tablet MDD 6 08/24/18
--- NOTE | 2018-08-24 15:45 | PN ---
Progress Note (short form) - Note Progress Note: Pt seen and examined. Doing very well. Has walked ~1200 feet in the last 2 days since surgery. AVSS Selected Entries 08/24/18 08/24/18 08/24/18 06:36 10:00 14:09 Temperature 98.0 F 98.0 F 97.5 F L Pulse Rate 64 80 70 Respiratory 16 20 16 Rate Blood Pressure 109/52 L 110/64 104/46 L O2 Sat by Pulse 99 Oximetry (%) Laboratory Tests 08/23/18 08/23/18 08/24/18 07:11 07:11 07:28 WBC 6.5 8.1 Hgb 10.5 L 9.7 L Hct 32.6 30.4 L Plt Count 294 291 Sodium 136 Potassium 4.4 Chloride 104 Carbon Dioxide 25 Anion Gap 7 L BUN 16 Creatinine 0.8 Creat Clearance w eGFR > 60 Random Glucose 135 H Calcium 8.8 08/24/18 07:28 WBC Hgb Hct Plt Count Sodium 138 Potassium 4.3 Chloride 103 Carbon Dioxide 28 Anion Gap 7 L BUN 15 Creatinine 0.9 Creat Clearance w eGFR > 60 Random Glucose 95 D Calcium 8.7 Gen: NAD RLE: c/d/i, NVID A/P 77yo female POD#1 s/p R TKA D/C home today; f/u in office in 10-14 days.
--- NOTE | 2018-08-26 13:32 | PATH ---
Surgical Pathology Report Patient Name: NEIL COE Med. Rec. #: [id number] /Age/Gender: 1940 (Age: 77) / F Account: [id number] Location: [facility] MED-SURG Taken: 08/22/2018 Received: 08/22/2018 Reported: 08/26/2018 Physicians: Iain Paez M.D. Specimen(s) Received RIGHT KNEE HARDWARE Clinical History Failed right total knee replacement Final Diagnosis HARDWARE, RIGHT KNEE, REMOVAL: HARDWARE, DESCRIBED (GROSS EXAMINATION ONLY). Electronically Signed Zulema Abebe M.D. Gross Description Received fresh labeled "right knee hardware," is a 7.0 cm in greatest dimension portion of varner metallic hardware as well as a 7.0 cm in greatest dimension white plastic portion of hardware, consistent with a knee explant. Also received within the same container is a 4 cm in length varner metallic alexander as well as a 5 cm in length varner metallic portion of wire. No soft tissue is present. No sections are submitted, gross only. 08/23/2018 formerly [facility]08/23/2018
== END 2018-08-24 17:00 | disposition home health service (06) | DRG 468 ==
LOC: FM/S 05:56
PROVIDERS: ADMIT Student in an Organized Health Care Education/Training Program; ATTEND Student in an Organized Health Care Education/Training Program
PROC: 0SPT0JZ Removal of Synthetic Substitute from Right Knee Joint, Femoral Surface, Open Approach (ICD-10-PCS; 2018-08-22)
PROC: 0SRT0J9 Replacement of Right Knee Joint, Femoral Surface with Synthetic Substitute, Cemented, Open Approach (ICD-10-PCS; principal; 2018-08-22 09:10)
DX: M97.11XA Periprosthetic fracture around internal prosthetic right knee joint, initial encounter (principal); M96.661 Fracture of femur following insertion of orthopedic implant, joint prosthesis, or bone plate, right leg; M84.351A Stress fracture, right femur, initial encounter for fracture; F32.9 Major depressive disorder, single episode, unspecified; E78.5 Hyperlipidemia, unspecified
CPT/HCPCS: 36415; 73560-TC-RT-FY; 80048; 85027; 88300-TC; 94760; 97116-GP; 97162-GP; J0131; J1100

== ENCOUNTER 2020-06-25 05:56 | Inpatient (IN) | payer OTHER ==
--- OUTSIDE RECORDS SUMMARY | 2020-06-22 08:43 | XMS ---
:1940 Author Organization [facility] Support Name Relationship Address Phone RE, RETIRED Unavailable Unavailable Unavailable RE Unavailable Unavailable Unavailable SUSANA STRINGER SISTER [address] [place], [place] [address] Re-disclosure Warning The records that you are about to access may contain information from federally- assisted alcohol or drug abuse programs. If such information is present, then the following federally mandated warning applies: This information has been disclosed to you from records protected by federal confidentiality rules (42 CFR part 2). The federal rules prohibit you from making any further disclosure of this information unless further disclosure is expressly permitted by the written consent of the person to whom it pertains or as otherwise permitted by 42 CFR part 2. A general authorization for the release of medical or other information is NOT sufficient for this purpose. The Federal rules restrict any use of the information to criminally investigate or prosecute any alcohol or drug abuse patient.The records that you are about to access may contain highly sensitive health information, the redisclosure of which is protected by Article 27-F of the [facility] Public Health law. If you continue you may haveaccess to information: Regarding HIV / AIDS; Provided by facilities licensed or operated by the [facility] Office of Mental Health; or Provided by the [facility] Office for People With Developmental Disabilities. If such information is present, then the following [facility] mandated warning applies: This information has been disclosed to you from confidential records which are protected by state law. State law prohibits you from making any further disclosure of this information without the specific written consent of the person to whom it pertains, or as otherwise permitted by law. Any unauthorized further disclosure in violation of state law may result in a fine or snf sentence or both. A general authorization for the release of medical or other information is NOT sufficient authorization for further disclosure. Insurance Providers Payer name Policy type Policy ID Covered Covered alliance party's Policy P den / Coverage alliance party ID relationship to [place] Inf ormation type wray UNITED [id number] SP [id number] HEALTHCARE (MEDICARE) UNITED [id number] SP [id number] HEALTHCARE (MEDICARE) Results ID Date Data Source [id number] 05/24/2020 11:08:00 AM EDT [facility] Name Value Range Interpretation Description Data Sup porting Code Source(s) Document(s ) SARS [facility] coronavirus 2 RNA This lab was ordered by [facility] and reported by [facility]. ID Date Data Source [id number] 05/17/2020 08:08:00 AM EDT [facility] Name Value Range Interpretation Description Data Sup porting Code Source(s) Document(s ) SARS [facility] coronavirus 2 RNA This lab was ordered by [facility] and reported by [facility]. ID Date Data Source [id number] 01/02/2020 12:00:00 AM EDT [facility] Name Value Range Interpretation Code Description Data Raisa rce(s) Supporting Document(s ) 2019-nCoV [facility] RNA XXX VINICIO+probe- Imp This lab was ordered by [facility] nd reported by [employer] Procedure
[2020-06-22 16:18] VITALS: BMI 32.8
--- OUTSIDE RECORDS SUMMARY | 2020-06-25 06:00 | XMS ---
:1940 [facility] Support Name Relationship Address Phone RE, RETIRED Unavailable Unavailable Unavailable RE Unavailable Unavailable Unavailable SUSANA STRINGER SISTER [address] [place], [place] [address] Re-disclosure Warning The records that you are [...] is protected by Article 27-F of the [facility] Public Health law. If you continue you may haveaccess to information: Regarding HIV / AIDS; Provided by facilities licensed or operated by the [facility] Office of Mental Health; or Provided by the [facility] Office for People With Developmental Disabilities. If such information is present, then the following [facility] mandated warning applies: This information has [...] law may result in a fine or retirement sentence or both. A general authorization for the release of medical or other information is NOT sufficient authorization for further disclosure. Insurance Providers Payer name Policy type Policy ID Covered Covered constitution party's Policy P den / Coverage constitution party ID relationship to [place] Inf ormation type wray UNITED [id number] SP [id number] HEALTHCARE (MEDICARE) UNITED [id number] SP [id number] HEALTHCARE (MEDICARE) Results ID Date Data Source [id number] 06/21/2020 04:00:00 PM EDT [facility] Name Value Range Interpretation Description Data Sup porting Code Source(s) Document(s ) SARS [facility] coronavirus 2 RNA This lab was ordered by [place] [facility] and reported by [facility]. ID Date Data Source [id number] 05/24/2020 11:08:00 AM EDT [facility] Name Value Range Interpretation Description Data Sup porting Code Source(s) Document(s ) SARS [facility] coronavirus 2 RNA This lab was ordered by [facility] and reported by [facility]. ID Date Data Source [id number] 05/17/2020 08:08:00 AM EDT [facility] Name Value Range Interpretation Description Data Sup porting Code Source(s) Document(s ) SARS [facility] coronavirus 2 RNA This lab was ordered by [facility] and reported by [facility]. ID Date Data Source [id number] 01/02/2020 12:00:00 AM EDT [facility] Name Value Range Interpretation Code Description Data Raisa rce(s) Supporting Document(s ) 2019-nCoV [facility] RNA XXX VINICIO+probe- Imp [facility] reported by [employer] Procedure
[2020-06-25] MEDS ORDERED: MIDAZOLAM HCL 2 MG/2 ML SINGLE DOSE VIAL ONE ×3 (06:59→10:22)
[2020-06-25] MEDS ORDERED: BUPIVACAINE LIPOSOME/PF (EXPAREL) 266 MG/20 ML VIAL ONE (07:00)
[2020-06-25] MEDS ORDERED: SODIUM CHLORIDE 0.9% P/F 10 ML VIAL IJ ONE (07:00)
[2020-06-25] MEDS ORDERED: VANCOMYCIN 1,000 MG VIAL (RESTRICTED TO ID ONLY) ONE (07:16)
--- NOTE | 2020-06-25 07:19 | HP ---
History & Physical Update - Physical Physical: No Change - Assessment Assessment: No Change - Plan Plan: No Change
--- NOTE | 2020-06-25 07:22 | OPR ---
DATE OF OPERATION: 06/25/2020 TITLE OF OPERATION: Left Total Knee Replacement PREOPERATIVE DIAGNOSIS: Left knee osteoarthritis POSTOPERATIVE DIAGNOSIS: Left knee osteoarthritis SURGEON: Eduardo Luu DO EXERCISE PLANNER: Dustin Robbins DO ANESTHESIA: Spinal anesthesia with regional block SPECIMEN: bone cuts PROSTHETIC DEVICE/IMPLANT: Triathlon X3 Asymmetric patella size 32mm, 10mm thickness; Triathlon Posterior Stabilized Femur Size 4; Triathlon Tibial Baseplate Size 4; Triathlon Tibial Bearing insert - PS - size 4, 11mm thickness. COMPLICATIONS: none EBL: 100mL TOURNIQUET TIME: 120 mins INDICATIONS FOR SURGERY: Ms. Olivas is a 79 year old female who presented in the preoperative setting with a chief complaint of severe left knee osteoarthritis with severe knee pain, and a notable varus deformity; The patient was initially treated non-operatively with injections, medications, and physical therapy, but continued to have severe pain and ambulatory dysfunction. She was therefore indicated for a left total knee replacement with MAKOplasty robotic navigation. The risks and benefits of surgery and anesthesia were discussed in detail including but not limited to infection, continued pain, bleeding, blood clot, scarring/arthrofibrosis, damage to vessels and nerves, instability or loosening of implant, difficulty ambulating, tom-prosthetic fracture, failure to obtain the desired result, failure to heal, failure to return to significant activity. Understanding the risks and benefits, Ms. Olivas opted to proceed with surgical management. SURGEON'S NARRATIVE: On the day of surgery, the patient was taken to the operating room and placed on the OR table. Spinal anesthesia was administered by the anesthesiologist. The patient was then positioned supine on the table, and all bony prominences were padded. The knee was then prepped and draped in the usual sterile fashion, and IV antibiotics were given for infection prophylaxis. A surgical time-out was then performed with the team, and the patient's identity, procedure, side, availability of implants, and the administration of antibiotics were performed. With the knee flexed, two parallel bicortical self-drilling pins were placed in the tibial diaphysis after making stab incisions and bluntly dissecting down to bone. Two pins were then placed in the distal supracondylar femur. The knee was exanguinated and tourniquet inflated. A midline incision was then made and carried down through the subcutaneous fat to the underlying retinaculum. A medial parapatellar arthrotomy was performed. This was followed by a subperiosteal dissection of the tissue off the proximal, medial tibia. A portion of the fat pad was removed from under the patellar tendon, and a small portion of fat was excised off the distal supracondylar femur. Electrocautery was used to achieve hemostasis. The knee was then flexed further and the anterior horn of the lateral meniscus was released from the midline. Next, the anterior and posterior cruciate ligaments were transected. Grade 4 changes were noted diffusely throughout the knee. Femoral and tibial checkpoints were then placed in the appropriate location using a drill. The [facility] navigation arrays were attached to the femoral and tibial pins and the lower extremity was then registered to the robotic navigation device using various joint movements, as well as inputting several dozen reference points. The knee was then taken through a full range of motion with a corrective force applied. Alignment in varus and valgus, as well as flexion and extension, and soft tissue balance was measured in various positions. The navigation device showed a numerical and graphic representation of the soft tissue balance. The components were repositioned virtually using the software until optimal soft tissue balance was achieved on the screen. Once this was accomplished, the final plan was saved and sent to the robot. Self-retaining retractors were then placed at the joint line for exposure and protection of the collateral ligaments. The robot was brought into the sterile field and registered with the navigation device. The robotic arm with attached oscillating saw blade was then used to perform femoral and tibial bone cuts as per the saved software plan. The femoral box cut was made using the appropriately - sized manual cutting guide. The knee was then irrigated. Trial components were placed and the knee was taken through a full range of motion to assess soft tissue balance and alignment. The range of motion was found to be excellent and the soft tissue balance was optimal and according to plan. The knee was then put into extension and the patella everted. The synovium around the patella was circumscribed with electrocautery. A caliper was used to measure the patellar thickness, and a saw was then used to resect the patella using a free-hand technique. The cut was then sized and drilled for the appropriate patellar button, with care taken to medialize it. A trial patella was then placed and the knee was again taken through a full range of motion. The knee was found to have both good balance and good patellar tracking. All of the components were removed except the tibial base plate. The appropriate instrumentation was used to drill and punch the proximal tibia for the keel of the final component. All bony surfaces were cleaned with the pulsatile lavage and dried. Bone cement was then prepared on the back table, and the final components were cemented in place in the usual fashion. Extruded cement was removed. The polyethylene trial was placed, the knee was put into extension, and axial pressure was applied for compression while the cement hardened. The patellar button was similarly cemented into place. Once the cement had hardened, the knee was taken through a full range of motion to assess stability, balance, and patellar tracking. This was found to be optimal and the trial polyethylene was exchanged for the appropriately sized real implant. An approximately three-minute diluted betadine soak was performed, followed by thorough pulsatile irrigation with normal saline. One gram of vancomycin powder was then spread around the joint tissues. A periarticular injection was used to locally infiltrate the capsular tissues surrounding the implant and prosthesis. Once this was done, the tourniquet was let down and all bleeders were cauterized. The parapatellar incision was closed with #1 Vicryl suture in a simple stitch fashion, and the subcuticular skin was closed with 0 Vicryl, 2-0 Vicryl suture, and the skin with jenifer. The tibial and femoral pins were removed and the incisions were irrigated thorougly, then closed with 3-0 Monocryl suture. A sterile Aquacell dressing and KEILA bandage was placed and the patient was placed in RAJNI stockings and bilateral SCD's. She tolerated procedure well and arrived in recovery in stable condition. POST-OP PLAN: Pain Control DVT Prophylaxis (ASA 325MG BID x 6 weeks; SCDs while in bed, encourage early ambulation) WBAT/Physical Therapy daily D/C Jenifer POD 14 F/U Daily AM Labs Will see her in my office on POD 14 for a post-operative visit, wound check, and staple removal Medical management Dispo Planning
[2020-06-25] MEDS ORDERED: SUCCINYLCHOLINE CHLORIDE 200 MG/10 ML SYRINGE ONE (07:46)
[2020-06-25] MEDS ORDERED: PHENYLEPHRINE HCL 10 MG/1 ML SINGLE DOSE VIAL ONE (07:46)
[2020-06-25] MEDS ORDERED: ePHEDrine SULFATE 50 MG/1 ML AMPULE ONE (07:46)
[2020-06-25] MEDS ORDERED: PROPOFOL 20 ML ONE ×4 (07:46→11:45)
[2020-06-25] MEDS ORDERED: EPINEPHrine/PF 1 MG/1 ML (1:1,000) AMPULE ONE (07:47)
[2020-06-25] MEDS ORDERED: BUPIVACAINE HCL/PF 0.5% (5MG/ML) 10 ML VIAL ONE (07:59)
[2020-06-25] MEDS ORDERED: ceFAZolin SODIUM 1 GM VIAL ONE (08:21)
[2020-06-25] MEDS ORDERED: ONDANSETRON 4 MG/2 ML VIAL ONE (08:21)
[2020-06-25] MEDS ORDERED: TRANEXAMIC ACID 1000 MG/10 ML VIAL ONE ×2 (08:21→11:50)
[2020-06-25] MEDS ORDERED: DEXAMETHASONE SOD PHOSPHATE 4 MG/1 ML VIAL ONE (10:50)
[2020-06-25] MEDS ORDERED: BUPIVICAINE 0.25%/MORPH PF/KETOROLAC - 51ML DISP.SYRINGE IA ONE ×2 (10:59→11:12)
[2020-06-25] MEDS ORDERED: VANCOMYCIN 1,000 MG VIAL (RESTRICTED TO ID ONLY) IVPB ONE (11:21)
[2020-06-25] MEDS ORDERED: MAG HYDROX/AL HYDROX/SIMETH 30 ML UNIT-DOSE CUP PO PRN (12:03)
[2020-06-25] MEDS ORDERED: ONDANSETRON 4 MG/2 ML VIAL IVPUSH PRN ×2 (12:03→12:40)
[2020-06-25] MEDS ORDERED: LACTATED RINGERS SOLUTION 1,000 ML IV SCH (12:15)
[2020-06-25] MEDS ORDERED: PROMETHAZINE HCL 25 MG/1 ML VIAL IVPUSH PRN (12:40)
[2020-06-25] MEDS ORDERED: oxyCODONE HCL 5 MG TABLET PO PRN (12:40)
[2020-06-25] MEDS ORDERED: ACETAMINOPHEN 325 MG TABLET (FP) ONE (13:06)
--- NOTE | 2020-06-25 15:17 | HP ---
CHIEF COMPLAINT: Left knee pain Ortho: Dr. Eduardo Luu HISTORY OF PRESENT ILLNESS: 79 year-old female with a PMH significant for HLD, asthma, GERD, depression, and osteoarthritis s/p left total knee replacement today with Dr. Luu. Recent Travel: No PAST MEDICAL HISTORY: Hyperlipidemia Asthma Osteoarthritis Depression GERD PAST SURGICAL HISTORY: Total right knee replacement 05/28 Right knee revision 08/27 Hysterectomy/BSO YAG laser iridotomy x 2 Social History: Smoking: former Alcohol: less than 5 drinks per week Drugs: no Family history: reviewed and non-contributory Allergies No Known Allergies Allergy (Verified 02/25/18 13:21) HOME MEDICATIONS: Home Medications Medication Instructions Recorded Bupropion HCl [Wellbutrin Xl] 300 mg PO DAILY 08/19/18 Simvastatin 10 mg PO HS 05/21/20 Aspirin [Aspirin EC] 81 mg PO DAILY 06/22/20 Budesonide/Formeterol Fumarate 1 inh PO BID PRN 06/22/20 [SYMBICORT 160/4.5mcg -] REVIEW OF SYSTEMS CONSTITUTIONAL: Absent: fever, chills, diaphoresis, generalized weakness, malaise, loss of appetite, weight change HEENT: Absent: rhinorrhea, nasal congestion, throat pain, throat swelling, difficulty swallowing, mouth swelling, ear pain, eye pain, visual changes CARDIOVASCULAR: Absent: chest pain, syncope, palpitations, irregular heart rate, lightheadedness, peripheral edema RESPIRATORY: Absent: cough, shortness of breath, dyspnea with exertion, orthopnea, wheezing, stridor, hemoptysis GASTROINTESTINAL: Absent: abdominal pain, abdominal distension, nausea, vomiting, diarrhea, constipation, melena, hematochezia GENITOURINARY: Absent: dysuria, frequency, urgency, hesitancy, hematuria, flank pain, genital pain MUSCULOSKELETAL: +left knee pain Absent: myalgia, arthralgia, joint swelling, back pain, neck pain SKIN: Absent: rash, itching, pallor HEMATOLOGIC/IMMUNOLOGIC: Absent: easy bleeding, easy bruising, lymphadenopathy, frequent infections ENDOCRINE: Absent: unexplained weight gain, unexplained weight loss, heat intolerance, cold intolerance NEUROLOGIC: Absent: headache, focal weakness or paresthesias, dizziness, unsteady gait, seizure, mental status changes, bladder or bowel incontinence PSYCHIATRIC: Absent: anxiety, depression, suicidal or homicidal ideation, hallucinations. PHYSICAL EXAMINATION Vital Signs - 24 hr 06/25/20 06/25/20 06/25/20 07:02 12:07 12:15 Temperature 98.2 F 97.4 F L Pulse Rate 66 85 72 Respiratory 18 18 16 Rate Blood Pressure 140/73 109/50 L 107/57 L O2 Sat by Pulse 97 99 98 Oximetry (%) 06/25/20 06/25/20 06/25/20 12:20 12:25 12:40 Temperature 97.4 F L Pulse Rate 70 69 68 Respiratory 16 16 18 Rate Blood Pressure 106/61 117/61 118/55 L O2 Sat by Pulse 97 98 98 Oximetry (%) 06/25/20 06/25/20 06/25/20 12:55 13:10 13:25 Temperature Pulse Rate 66 69 68 Respiratory 18 20 20 Rate Blood Pressure 122/56 L 121/54 L 121/58 L O2 Sat by Pulse 99 98 97 Oximetry (%) 06/25/20 14:21 Temperature 97.6 F Pulse Rate 60 Respiratory 17 Rate Blood Pressure 116/50 L O2 Sat by Pulse 99 Oximetry (%) GENERAL: Awake, alert, and fully oriented, in no acute distress. Pain is well- controlled. HEAD: Normal with no signs of trauma. EYES: Pupils equal, round and reactive to light, extraocular movements intact, sclera anicteric, conjunctiva clear. No lid lag. LUNGS: Breath sounds equal, clear to auscultation bilaterally. No wheezes, and no crackles. No accessory muscle use. HEART: Regular rate and rhythm, normal S1 and S2 ABDOMEN: Soft, nontender, not distended UPPER EXTREMITIES: 2+ pulses, warm, well-perfused. No cyanosis. No clubbing. No peripheral edema. LOWER EXTREMITIES: 2+ pulses, warm, well-perfused; +flex/extend toes, sensory intact; surgical dressing c/d/i, ice pack NEUROLOGICAL: Cranial nerves II-XII intact. Normal speech Pre op Hgb 12.6 BUN 14 Cr 1.0 Intra op Cefazolin 2g x 1 EBL 150mL LR 1.1L ASSESSMENT/PLAN: 79 year-old female with a PMH significant for HLD, asthma, GERD, depression, and osteoarthritis s/p left total knee replacement today with Dr. Luu. Left total knee replacement --POD #0 --perioperative antibiotics per surgery --pain management per surgery --ASA 325mg BID --protonix --bowel regimen --incentive spirometry Hyperlipidemia --continue simvastatin Asthma --continue Symbicort GERD --protonix Depression --continue bupropion FEN Fluids: LR@125mL/hr Electrolytes: replete as indicated Nutrition: regular diet DVT prophylaxis: OOB, ambulation, SCDs, ASA 325mg BID Physical therapy Dispo: continues to require inpatient care. Full code. Family Medical History Family History: As Documented Visit type - Medication Review Med list reviewed for High Risk Meds patients 65 and older: Yes - Emergency Visit Emergency Visit: No - New Patient This patient is new to me today: Yes Date on this admission: 06/25/20 - Critical Care Critical Care patient: No
[2020-06-25] MEDS: ACETAMINOPHEN 325 MG TABLET (FP) PO SCH ×2 (17:25→21:10)
[2020-06-25] MEDS: oxyCODONE HCL 5 MG TABLET PO PRN ×2 (17:50→21:11)
[2020-06-25] MEDS: CEFAZOLIN 2 GM/D5W 2 GM/50 ML ML IVPB SCH (18:57)
[2020-06-25] MEDS: ATORVASTATIN CA 10 MG TABLET (FP) PO SCH (21:10)
[2020-06-25] MEDS: SENNOSIDES/DOCUSATE COMBO (SENNA PLUS) TABLET (UD) PO SCH (21:11)
[2020-06-25] MEDS: GABAPENTIN 300 MG CAPSULE PO SCH (21:14)
[2020-06-25] MEDS ORDERED: PATIENT'S OWN MEDICATION (NON-FORMULARY) (Simvastatin [Simvastatin] 10 MG) PO SCH (22:00)
[2020-06-25] MEDS: BUDESONIDE/FORMETEROL FUMARATE 160/4.5 mcg INHALER IH SCH (22:00)
[2020-06-26] MEDS: CEFAZOLIN 2 GM/D5W 2 GM/50 ML ML IVPB SCH (01:21)
[2020-06-26] MEDS: ACETAMINOPHEN 325 MG TABLET (FP) PO SCH ×4 (01:22→20:25)
[2020-06-26] MEDS: oxyCODONE HCL 5 MG TABLET PO PRN (03:22)
[2020-06-26 08:20] LABS: HEMATOCRIT 29.6 % (32.4-45.2); HEMOGLOBIN 9.6 GM/dl (10.7-15.3); MCH 29.5 pg (25.7-33.7); MCHC 32.3 g/dl (32.0-36.0); MEAN CELL VOLUME 91.4 fl (80-96); MEAN PLT VOLUME 8.4 fl (7.5-11.1); PLATELET COUNT 199 K/MM3 (134-434); RBC 3.24 M/mm3 (3.60-5.2); RDW 13.2 % (11.6-15.6); WHITE BLOOD COUNT 8.2 K/mm3 (4.0-10.8)
[2020-06-26 08:27] LABS: CALCIUM 8.4 mg/dl (8.5-10); CREATININE 0.8 mg/dl (0.55-1.3)
[2020-06-26] MEDS: SENNOSIDES/DOCUSATE COMBO (SENNA PLUS) TABLET (UD) PO SCH ×2 (09:12→22:14)
[2020-06-26] MEDS: ASPIRIN 325 MG TABLET PO SCH ×2 (09:12→22:14)
[2020-06-26] MEDS: PANTOPRAZOLE 40 MG TABLET PO SCH (09:12)
[2020-06-26] MEDS: MULTIVITAMINS (DAILY MVI) TABLET (FP) PO SCH (09:12)
[2020-06-26] MEDS: GABAPENTIN 300 MG CAPSULE PO SCH ×2 (09:12→22:14)
[2020-06-26] MEDS: BUDESONIDE/FORMETEROL FUMARATE 160/4.5 mcg INHALER IH SCH ×2 (09:13→22:14)
--- NOTE | 2020-06-26 09:58 | PN ---
Physical Exam: SUBJECTIVE: Patient seen and examined at bedside, report Left knee pain getting better,c/o heavy breathing earlier but resolved now, denies cp, sob, palpitations, abdominal pain, N/V/D or urinary symptoms. OBJECTIVE: Vital Signs Period Temp Pulse Resp BP Sys/Cross Pulse Ox Last 24 Hr 97.4 F-98.5 F 60-85 16-20 99-124/38-75 96-100 GENERAL: The patient is awake, alert, and fully oriented, in no acute distress. HEAD: Normal with no signs of trauma. EYES: PERRL, extraocular movements intact, sclera anicteric, conjunctiva clear. No ptosis. ENT: Ears normal, nares patent, oropharynx clear without exudates, moist mucous membranes. NECK: Trachea midline, full range of motion, supple. LUNGS: Breath sounds equal, clear to auscultation bilaterally, no wheezes, no crackles, no accessory muscle use. HEART: Regular rate and rhythm, S1, S2 without murmur, rub or gallop. ABDOMEN: Soft, nontender, nondistended, normoactive bowel sounds, no guarding, no rebound, no hepatosplenomegaly, no masses. EXTREMITIES: 2+ pulses, warm, well-perfused, no edema.Left knee dsg intact NEUROLOGICAL: Cranial nerves II through XII grossly intact. Normal speech, gait not observed. PSYCH: Normal mood, normal affect. SKIN: Warm, dry, normal turgor, no rashes or lesions noted Laboratory Results - last 24 hr 06/26/20 06/26/20 07:40 07:40 WBC 8.2 RBC 3.24 L Hgb 9.6 L Hct 29.6 L MCV 91.4 MCH 29.5 MCHC 32.3 RDW 13.2 D Plt Count 199 MPV 8.4 Sodium 136 Potassium 4.0 Chloride 104 Carbon Dioxide 25 Anion Gap 7 L BUN 14.0 Creatinine 0.8 Est GFR (CKD-EPI)AfAm 81.27 Est GFR (CKD-EPI)NonAf 70.12 Random Glucose 117 H Calcium 8.4 L Active Medications Generic Name Dose Route Start Last Admin Trade Name Freq PRN Reason Stop Dose Admin Acetaminophen 650 mg 06/25/20 14:00 06/26/20 09:11 Tylenol - PO 06/28/20 13:59 Not Given Q6H ANTONIETTA Al Hydroxide/Mg Hydroxide 30 ml 06/25/20 12:03 Mylanta Oral Suspension - PO Q4H PRN DYSPEPSIA Aspirin 325 mg 06/26/20 10:00 06/26/20 09:12 Asa - PO 325 mg BID ANTONIETTA Administration Atorvastatin Calcium 10 mg 06/25/20 22:00 06/25/20 21:10 Lipitor - PO 10 mg HS ANTONIETTA Administration Budesonide/Formoterol Fumarate 1 puff 06/25/20 22:00 06/26/20 09:13 Symbicort 160/4.5mcg - IH 1 puff BID ANTONIETTA Administration Bupropion HCl 300 mg 06/26/20 10:00 06/26/20 09:14 Wellbutrin Xl - PO 300 mg DAILY ANTONIETTA Administration Fentanyl 50 mcg 06/25/20 12:40 Sublimaze Injection - IVPUSH [id number] PRN PAIN-PACU ORDER X 4 DOSES ONLY Gabapentin 300 mg 06/25/20 22:00 06/26/20 09:12 Neurontin - PO 06/28/20 21:59 300 mg BID ANTONIETTA Administration Multivitamins/Minerals/Vitamin C 1 tab 06/26/20 10:00 06/26/20 09:12 Tab-A-Vit - PO 1 tab DAILY ANTONIETTA Administration Ondansetron HCl 4 mg 06/25/20 12:03 Zofran Injection IVPUSH Q6H PRN NAUSEA Oxycodone HCl 5 mg 06/25/20 12:40 Roxicodone - PO Q3H PRN PAIN LEVEL 1-5 Oxycodone HCl 10 mg 06/25/20 12:40 06/26/20 03:22 Roxicodone - PO 10 mg Q3H PRN Administration PAIN LEVEL 6-10 Pantoprazole Sodium 40 mg 06/26/20 10:00 06/26/20 09:12 Protonix - PO 40 mg DAILY ANTONIETTA Administration Promethazine HCl 12.5 mg 06/25/20 12:40 Phenergan Injection - IVPUSH Q6H PRN NAUSEA-FOR RESCUE AFTER 15 MIN Senna/Docusate Sodium 2 tablet 06/25/20 22:00 06/26/20 09:12 Pericolace - PO 2 tablet BID ANTONIETTA Administration ASSESSMENT/PLAN: 79 year-old female with a PMH significant for HLD, asthma, GERD, depression, chronic anemia and osteoarthritis s/p left total knee replacement. *Left total knee replacement on 06/26/20 - management per sx - Pain control - PT -Bowel regimen - DVT prophylaxis ASA 325mg BID - encourage to use IS * Hypotension poss due to pain meds, asymptomatic - IVF - will monitor BP closely *Hyperlipidemia -continue simvastatin *Asthma -continue Symbicort *GERD -protonix *Depression -continue Bupirone * Chronic anemia -baseline - -CBC stable - will monitor *FEN Fluids: LR@125mL/hr Electrolytes: replete as indicated Nutrition: regular diet DVT prophylaxis: OOB, ambulation, SCDs, ASA 325mg BID Physical therapy Dispo: continues to require inpatient care. Full code. Visit type - Emergency Visit Emergency Visit: Yes ED Registration Date: 06/25/20 Care time: The patient presented to the Emergency Department on the above date and was hospitalized for further evaluation of their emergent condition. - New Patient This patient is new to me today: No - Critical Care Critical Care patient: No - Medication Review Med list reviewed for High Risk Meds patients 65 and older: Yes
--- NOTE | 2020-06-26 10:52 | PN ---
Progress Note (short form) - Note Progress Note: ORTHOPEDIC SURGERY PROGRESS NOTE Department of Orthopedic Surgery SUBJECTIVE No acute events overnight. No complaints currently. Denies chest pain, shortness of breath, or calf pain. No nausea or vomiting. Tolerating oral intake. Pain control difficult overnight, but improving. PHYSICAL EXAMINATION General: Alert, oriented, cooperative and no distress. Left Lower Extremity: Dressing intact; Skin intact, no lesions, rashes or ulcers noted. Muscle mass equal and symmetric to contralateral side. No atrophy noted. No masses or effusions noted. No tenderness to palpation. LROM of the knee secon charmaine to pain and swelling; Full passive and active ROM of the ankle and feet, free from pain. EHL/TA/GS motor intact; SILT distally; 2+ DP pulses; Cap refill brisk. DVT Exam: No evidence of DVT seen on physical exam; No cords or calf tenderness; No significant calf/ankle edema. Intake & Output 06/24/20 06/25/20 06/26/20 23:59 23:59 23:59 Intake Total 1400 1950 Output Total 900 600 Balance 500 1350 Intake: IV 1100 1000 Lactated Ringers Solution 1000 1,000 ml @ 125 mls/hr IV ASDIR ANTONIETTA Rx#: [id number] IVPB 100 Oral 300 850 Output: Urine 900 600 Void 900 600 Other: Voiding Method Bedpan Toilet Bowel Movement Yes Weight 185 lb Height 5 ft 3 in Body Mass Index (BMI) 32.8 Weight Measurement Method Standing Scale Active Medications Generic Name Dose Route Start Last Admin Trade Name Freq PRN Reason Stop Dose Admin Acetaminophen 650 mg 06/25/20 14:00 06/26/20 09:11 Tylenol - PO 06/28/20 13:59 Not Given Q6H ANTONIETTA Al Hydroxide/Mg Hydroxide 30 ml 06/25/20 12:03 Mylanta Oral Suspension - PO Q4H PRN DYSPEPSIA Aspirin 325 mg 06/26/20 10:00 06/26/20 09:12 Asa - PO 325 mg BID ANTONIETTA Administration Atorvastatin Calcium 10 mg 06/25/20 22:00 06/25/20 21:10 Lipitor - PO 10 mg HS ANTONIETTA Administration Budesonide/Formoterol Fumarate 1 puff 06/25/20 22:00 06/26/20 09:13 Symbicort 160/4.5mcg - IH 1 puff BID ANTONIETTA Administration Bupropion HCl 300 mg 10/17/20 10:00 06/26/20 09:14 Wellbutrin Xl - PO 300 mg DAILY ANTONIETTA Administration Fentanyl 50 mcg 06/25/20 12:40 Sublimaze Injection - IVPUSH [id number] PRN PAIN-PACU ORDER X 4 DOSES ONLY Gabapentin 300 mg 06/25/20 22:00 06/26/20 09:12 Neurontin - PO 06/28/20 21:59 300 mg BID ANTONIETTA Administration Multivitamins/Minerals/Vitamin C 1 tab 06/26/20 10:00 06/26/20 09:12 Tab-A-Vit - PO 1 tab DAILY ANTONIETTA Administration Ondansetron HCl 4 mg 06/25/20 12:03 Zofran Injection IVPUSH Q6H PRN NAUSEA Oxycodone HCl 5 mg 06/25/20 12:40 Roxicodone - PO Q3H PRN PAIN LEVEL 1-5 Oxycodone HCl 10 mg 06/25/20 12:40 06/26/20 03:22 Roxicodone - PO 10 mg Q3H PRN Administration PAIN LEVEL 6-10 Pantoprazole Sodium 40 mg 06/26/20 10:00 06/26/20 09:12 Protonix - PO 40 mg DAILY ANTONIETTA Administration Promethazine HCl 12.5 mg 06/25/20 12:40 Phenergan Injection - IVPUSH Q6H PRN NAUSEA-FOR RESCUE AFTER 15 MIN Senna/Docusate Sodium 2 tablet 06/25/20 22:00 06/26/20 09:12 Pericolace - PO 2 tablet BID ANTONIETTA Administration Vital Signs (last) Temp Pulse Resp BP Pulse Ox 97.6 F 60 18 97/45 L 98 06/26/20 10:01 06/26/20 10:01 06/26/20 10:01 06/26/20 10:01 06/26/20 10:01 Laboratory 06/26/20 07:40 06/26/20 07:40 ASSESSMENT AND PLAN Ms. Hugo Olivas is a 79 year old female s/p Left TKA, POD 1 - Pain control: Transition to oral pain medications, minimize narcotic use - DVT prophylaxis (ASA 325mg BID x 6 weeks) - Ice continuous to left knee; keep dressings clean/dry - Elevate HOB, encourage oral intake - Appreciate medical management (Nutrition optimization, decubitus precautions heel/sacrum) - PT BID; WBAT LLE - Dispo planning
[2020-06-26] MEDS ORDERED: PT OWN MED DRAWER 7, Y5N ONE (11:51)
[2020-06-26] MEDS ORDERED: ALBUTEROL SO4 0.083% IH SOL 2.5 MG/3 ML VIAL.NEB. NEB PRN (14:29)
[2020-06-26] MEDS: ATORVASTATIN CA 10 MG TABLET (FP) PO SCH (22:14)
[2020-06-27] MEDS: ACETAMINOPHEN 325 MG TABLET (FP) PO SCH ×2 (01:41→08:40)
[2020-06-27 07:05] VITALS: BP 100/52; PULSE 80; TEMP 99
[2020-06-27 09:21] LABS: BASO % 0.4 % (0-2.0); EOS % 3.6 % (0-4.5); HEMATOCRIT 29.1 % (32.4-45.2); HEMOGLOBIN 9.6 GM/dl (10.7-15.3); LYMPH % 11.5 % (8-40); MEAN CELL VOLUME 90.9 fl (80-96); MEAN PLT VOLUME 8.3 fl (7.5-11.1); MONO % 14.5 % (3.8-10.2); PLATELET COUNT 234 K/MM3 (134-434); RDW 13.1 % (11.6-15.6)
[2020-06-27 09:38] LABS: CALCIUM 8.3 mg/dl (8.5-10); CREATININE 0.9 mg/dl (0.55-1.3); POTASSIUM 4.2 mmol/L (3.5-5.1)
--- NOTE | 2020-06-27 10:21 | PN ---
Progress Note (short form) - Note Progress Note: ORTHOPEDIC SURGERY PROGRESS NOTE Department of Orthopedic Surgery SUBJECTIVE No acute events overnight. No complaints currently. Denies chest pain, shortness of breath, or calf pain. No nausea or vomiting. Tolerating oral intake. Pain controlled today. PHYSICAL EXAMINATION General: Alert, oriented, cooperative and no distress. Left Lower Extremity: Dressing intact; Skin intact, no lesions, rashes or ulcers noted. Muscle mass equal and symmetric to contralateral side. No atrophy noted. No masses or effusions noted. No tenderness to palpation. LROM of the knee secondary to pain and swelling; Full passive and active ROM of the ankle and feet, free from pain. EHL/TA/GS motor intact; SILT distally; 2+ DP pulses; Cap refill brisk. DVT Exam: No evidence of DVT seen on physical exam; No cords or calf tenderness; No significant calf/ankle edema. Intake & Output 06/25/20 06/26/20 06/27/20 23:59 23:59 23:59 Intake Total 1400 2900 380 Output Total 900 600 Balance 500 2300 380 Intake: IV 1100 1000 Lactated Ringers Solution 1000 1,000 ml @ 125 mls/hr IV ASDIR ANTONIETTA Rx#: [id number] IVPB 100 Oral 300 1800 380 Output: Urine 900 600 Void 900 600 Other: Voiding Method Bedpan Toilet Toilet # Unmeasured Voids Void 1 Bowel Movement Yes Weight 185 lb Height 5 ft 3 in Body Mass Index (BMI) 32.8 Weight Measurement Method Standing Scale Active Medications Generic Name Dose Route Start Last Admin Trade Name Freq PRN Reason Stop Dose Admin Acetaminophen 650 mg 06/25/20 14:00 06/27/20 08:40 Tylenol - PO 06/28/20 13:59 650 mg Q6H ANTONIETTA Administration Al Hydroxide/Mg Hydroxide 30 ml 06/25/20 12:03 Mylanta Oral Suspension - PO Q4H PRN DYSPEPSIA Albuterol Sulfate 1 amp 06/26/20 14:29 Ventolin 0.083% Nebulizer Soln - NEB Q4H PRN SHORT OF BREATH/WHEEZING Aspirin 325 mg 06/26/20 10:00 06/26/20 22:14 Asa - PO 325 mg BID ANTONIETTA Administration Atorvastatin Calcium 10 mg 06/25/20 22:00 06/26/20 22:14 Lipitor - PO 10 mg HS ANTONIETTA Administration Budesonide/Formoterol Fumarate 1 puff 06/25/20 22:00 06/26/20 22:14 Symbicort 160/4.5mcg - IH 1 puff BID ANTONIETTA Administration Bupropion HCl 300 mg 06/26/20 10:00 06/26/20 09:14 Wellbutrin Xl - PO 300 mg DAILY ANTONIETTA Administration Fentanyl 50 mcg 06/25/20 12:40 Sublimaze Injection - IVPUSH [id number] PRN PAIN-PACU ORDER X 4 DOSES ONLY Gabapentin 300 mg 06/25/20 22:00 06/26/20 22:14 Neurontin - PO 06/28/20 21:59 300 mg BID ANTONIETTA Administration Multivitamins/Minerals/Vitamin C 1 tab 06/26/20 10:00 06/26/20 09:12 Tab-A-Vit - PO 1 tab DAILY ANTONIETTA Administration Ondansetron HCl 4 mg 06/25/20 12:03 Zofran Injection IVPUSH Q6H PRN NAUSEA Oxycodone HCl 5 mg 06/25/20 12:40 Roxicodone - PO Q3H PRN PAIN LEVEL 1-5 Oxycodone HCl 10 mg 06/25/20 12:40 06/26/20 03:22 Roxicodone - PO 10 mg Q3H PRN Administration PAIN LEVEL 6-10 Pantoprazole Sodium 40 mg 06/26/20 10:00 06/26/20 09:12 Protonix - PO 40 mg DAILY ANTONIETTA Administration Promethazine HCl 12.5 mg 06/25/20 12:40 Phenergan Injection - IVPUSH Q6H PRN NAUSEA-FOR RESCUE AFTER 15 MIN Senna/Docusate Sodium 2 tablet 06/25/20 22:00 06/26/20 22:14 Pericolace - PO 2 tablet BID ANTONIETTA Administration Vital Signs (last) Temp Pulse Resp BP Pulse Ox 99.0 F 80 16 100/52 L 100 06/27/20 06:00 06/27/20 06:00 06/27/20 06:00 06/27/20 06:00 06/27/20 06:00 Laboratory 06/27/20 07:00 06/27/20 07:00 ASSESSMENT AND PLAN Ms. Hugo Olivas is a 79 year old female s/p Left TKA, POD 2 - Pain control: Transition to oral pain medications, minimize narcotic use - DVT prophylaxis (ASA 325mg BID x 6 weeks) - Ice continuous to left knee; keep dressings clean/dry - Elevate HOB, encourage oral intake - Appreciate medical management (Nutrition optimization, decubitus precautions heel/sacrum) - PT BID; WBAT LLE - Change dressing POD 5 with visiting nurse, and every 3 days after. Keep wound clean/dry. - Follow up in my office on POD 14 for wound check and staple removal. - Dispo planning
[2020-06-27] MEDS: GABAPENTIN 300 MG CAPSULE PO SCH (10:23)
[2020-06-27] MEDS: PANTOPRAZOLE 40 MG TABLET PO SCH (10:23)
[2020-06-27] MEDS: SENNOSIDES/DOCUSATE COMBO (SENNA PLUS) TABLET (UD) PO SCH (10:23)
[2020-06-27] MEDS: ASPIRIN 325 MG TABLET PO SCH (10:23)
[2020-06-27] MEDS: MULTIVITAMINS (DAILY MVI) TABLET (FP) PO SCH (10:24)
[2020-06-27] MEDS: BUDESONIDE/FORMETEROL FUMARATE 160/4.5 mcg INHALER IH SCH (10:45)
--- NOTE | 2020-06-27 12:38 | DS ---
Physical Exam: SUBJECTIVE: Patient seen and examined OBJECTIVE: Vital Signs Period Temp Pulse Resp BP Sys/Cross Pulse Ox Last 24 Hr 98.5 F-99.6 F 75-98 16-19 100-134/36-52 94-100 PHYSICAL EXAM GENERAL: The patient is awake, alert, and fully oriented, in no acute distress. HEAD: Normal with no signs of trauma. EYES: PERRL, extraocular movements intact, sclera anicteric, conjunctiva clear. ENT: Ears normal, nares patent, oropharynx clear without exudates, moist mucous membranes. NECK: Trachea midline, full range of motion, supple. LUNGS: Breath sounds equal, clear to auscultation bilaterally, no wheezes, no crackles, no accessory muscle use. HEART: Regular rate and rhythm, S1, S2 without murmur, rub or gallop. ABDOMEN: Soft, nontender, nondistended, normoactive bowel sounds, no guarding, no rebound, no hepatosplenomegaly, no masses. EXTREMITIES: 2+ pulses, warm, well-perfused, no edema. Left knee dsg dry and intact NEUROLOGICAL: Cranial nerves II through XII grossly intact. Normal speech, gait not observed. PSYCH: Normal mood, normal affect. SKIN: Warm, dry, normal turgor, no rashes or lesions noted. LABS Laboratory Results - last 24 hr 06/27/20 06/27/20 07:00 07:00 WBC 10.0 RBC 3.20 L Hgb 9.6 L Hct 29.1 L MCV 90.9 MCH 30.0 MCHC 33.0 RDW 13.1 Plt Count 234 MPV 8.3 Absolute Neuts (auto) 6.9 Neutrophils % 70.0 Lymphocytes % 11.5 Monocytes % 14.5 H Eosinophils % 3.6 Basophils % 0.4 Sodium 138 Potassium 4.2 Chloride 104 Carbon Dioxide 25 Anion Gap 9 BUN 10.0 Creatinine 0.9 Est GFR (CKD-EPI)AfAm 70.48 Est GFR (CKD-EPI)NonAf 60.81 Random Glucose 97 Calcium 8.3 L HOSPITAL COURSE: Date of Admission:06/25/20 Date of Discharge: 06/27/20 This is a 79 year-old female with a PMH significant for HLD, asthma, GERD, depression, chronic anemia and osteoarthritis, underwent left total knee replacement. *Left total knee replacement on 06/26/20 -management per sx - Pain control - PT eval done,Home with Assist -Bowel regimen -encourage to use IS - Ice continuous to left knee; keep dressings clean/dry - Weight bearing as tolerated, keep left left elevated - Change dressing post -op day #5 with visiting nurse, and every 3 days after. Keep wound clean/dry. -Follow up with Dr. Luu's office approximately POD 14 for wound check and staple removal. -DVT Prophylaxis (ASA 325MG BID x 6 weeks -Hold ASA 81mg while on ASA 325mg * Hypotension poss due to pain meds -s/p IVF with improvement *Hyperlipidemia -continue simvastatin *Asthma-continue Symbicort *GERD-protonix *Depression-continue Bupirone * Chronic anemia -baseline 05-20 -CBC stable Minutes to complete discharge: 35 Discharge Summary Problems reviewed: Yes Reason For Visit: LEFT KNEE OSTEOARTHRITIS Condition: Good - Instructions Diet, Activity, Other Instructions: Regular diet Referrals: Eduardo Luu DO [Staff Physician] - 2 Weeks Disposition: HOME - Home Medications Comprehensive Discharge Medication List: Ambulatory Orders Bupropion HCl [Wellbutrin Xl] 300 mg PO DAILY 08/19/18 Simvastatin 10 mg PO HS 05/21/20 Budesonide/Formeterol Fumarate [SYMBICORT 160/4.5mcg -] 1 inh PO BID PRN 06/22/20 Aspirin [ASA -] 325 mg PO BID #84 tablet 06/27/20 This patient is new to me today: No Emergency Visit: No Critical Care patient: No - Discharge Referral Referred to [facility] Med P.C.: No
--- NOTE | 2020-06-29 13:49 | PATH ---
Surgical Pathology Report Patient Name: NEIL COE Med. Rec. #: [id number] /Age/Gender: 1940 (Age: 79) / F Account: [id number] Location: [facility] MED-SURG Taken: 06/25/2020 Received: 06/25/2020 Reported: 06/29/2020 Physicians: Matthew Khan M.D. Specimen(s) Received LEFT KNEE BONES Clinical History Left knee osteoarthritis Final Diagnosis BONE, KNEE, LEFT, TOTAL KNEE REPLACEMENT MAKOPLASTY: BONE WITH DEGENERATIVE JOINT DISEASE, FIBROCONNECTIVE TISSUE, AND SYNOVIUM. Electronically Signed Dipti Bae M.D. Gross Description Received in formalin labeled "left knee bone," is a 13.0 x 10.5 x 2.0 cm aggregate of beverly-yellow portions of bone and soft tissue, consistent with knee bones. The tibial plateau displays a 2.5 cm in greatest dimension area of eburnation. The remaining articular surfaces are beverly-yellow and focally granular. The underlying trabecular bone is yellow and hard. [employer] sections are submitted in one cassette, following decalcification. /06/28/2020 saudi/06/28/2020
== END 2020-06-27 14:05 | disposition home or self-care (01) | DRG 470 ==
LOC: FM/S 05:56
PROVIDERS: ADMIT Orthopaedic Surgery; ATTEND Nurse Practitioner Acute Care
PROC: 0SRD0J9 Replacement of Left Knee Joint with Synthetic Substitute, Cemented, Open Approach (ICD-10-PCS; principal; 2020-06-25 08:53)
DX: M17.12 Unilateral primary osteoarthritis, left knee (principal); K21.9 Gastro-esophageal reflux disease without esophagitis; E78.5 Hyperlipidemia, unspecified; J45.909 Unspecified asthma, uncomplicated; F32.9 Major depressive disorder, single episode, unspecified; D64.9 Anemia, unspecified; I95.9 Hypotension, unspecified
CPT/HCPCS: 36415; 73560-TC-LT-FY; 80048; 85025; 85027; 88305-TC; 88311-TC; 94760; 97116-GP

== ENCOUNTER 2023-08-09 06:07 | Day surgery (SDC) | payer OTHER ==
[2023-08-06 11:43] VITALS: BMI 32.8
[2023-08-09] MEDS ORDERED: PROPOFOL 20 ML ONE (07:03)
[2023-08-09] MEDS ORDERED: MIDAZOLAM HCL 2 MG/2 ML SINGLE DOSE VIAL ONE ×2 (07:03→08:13)
[2023-08-09] MEDS ORDERED: DEXAMETHASONE SOD PHOSPHATE/PF 10 MG/ML SDV ONE (07:07)
[2023-08-09] MEDS ORDERED: ROPIVACAINE HCL 0.5% 30ML VIAL ONE (07:07)
[2023-08-09] MEDS ORDERED: EPINEPHrine 1:1,000 1,000 MCG/ML ML ONE (07:28)
[2023-08-09] MEDS ORDERED: PROPOFOL 40 ML ONE (08:15)
[2023-08-09] MEDS ORDERED: ePHEDrine SULFATE 50 MG/1 ML AMPULE ONE (08:31)
[2023-08-09] MEDS ORDERED: ONDANSETRON 4 MG/2 ML VIAL ONE (08:51)
[2023-08-09] MEDS ORDERED: ceFAZolin SODIUM 1 GM VIAL ONE (08:51)
[2023-08-09] MEDS ORDERED: ONDANSETRON 4 MG/2 ML VIAL IVPUSH PRN (09:38)
[2023-08-09] MEDS ORDERED: PROMETHAZINE HCL 25 MG/1 ML VIAL IVPB PRN (09:38)
[2023-08-09] MEDS ORDERED: oxyCODONE HCL 5 MG TABLET PO PRN (09:38)
[2023-08-09] MEDS ORDERED: LACTATED RINGERS SOLUTION 1,000 ML IV SCH (09:45)
[2023-08-09 11:41] VITALS: RESP 19; TEMP 97.8
[2023-08-09 11:54] VITALS: BP 110/68; PULSE 74
== END 2023-08-09 11:50 | disposition home or self-care (01) ==
LOC: FASU 06:07
PROVIDERS: ATTEND Orthopaedic Surgery
PROC: 0RNJ4ZZ Release Right Shoulder Joint, Percutaneous Endoscopic Approach (ICD-10-PCS; 2023-08-09)
PROC: 0PB94ZZ Excision of Right Clavicle, Percutaneous Endoscopic Approach (ICD-10-PCS; 2023-08-09)
PROC: 0RBJ4ZZ Excision of Right Shoulder Joint, Percutaneous Endoscopic Approach (ICD-10-PCS; principal; 2023-08-09 08:28)
DX: M75.101 Unspecified rotator cuff tear or rupture of right shoulder, not specified as traumatic (principal); M75.01 Adhesive capsulitis of right shoulder; M75.41 Impingement syndrome of right shoulder; M19.011 Primary osteoarthritis, right shoulder; M65.811 Other synovitis and tenosynovitis, right shoulder; S43.431A Superior glenoid labrum lesion of right shoulder, initial encounter; X58.XXXA Exposure to other specified factors, initial encounter; Y93.9 Activity, unspecified; Y92.9 Unspecified place or not applicable
CPT/HCPCS: 94760; C1713; C1889